=== PATIENT | female | born 1980 | race Caucasian/White ===

== ENCOUNTER → 2017-09-27 13:35 | Outpatient (CLI) | payer SELFPAY ==
[2017-10-05 10:00] LABS: HPV Reflexed? NOT INDICATED
== END ==
PROVIDERS: Visit Provider Obstetrics & Gynecology
DX: Z12.4 Encounter for screening for malignant neoplasm of cervix (principal)
CPT/HCPCS: 88175; G0145

== ENCOUNTER → 2017-10-19 08:04 | Outpatient (CLI) | payer SELFPAY ==
--- NOTE | 2017-10-19 08:12 | BI_ITS ---
MAMMOGRAPHY - BILATERAL SCREENING REASON FOR EXAM: Female, 37 years old. Routine annual screening examination. PERTINENT HISTORY: Mother with breast cancer. TECHNIQUE: Digital bilateral breast cheko (3D mammographic acquisition) in the CC and MLO projections. 2-D mediolateral oblique (MLO) and craniocaudad (CC) views of both breasts were obtained. CAD: Full Field Digital Mammography with Computer Added Detection was performed. COMPARISON: None. Baseline examination. FINDINGS: Breast Composition: The breasts are extremely dense, which lowers the sensitivity of mammography. There are no dominant masses or suspicious calcifications. No other significant abnormalities are identified. BI/SCREENING MAMM (CAD), BILAT IMPRESSION: Negative screening mammogram. Yearly followup mammogram recommended. (A) ASSESSMENT CATEGORY: BIRADS Category 1: Negative. A letter regarding these results will be sent to the patient by the facility within 30 days. Approximately 10% of breast cancers are not detected by mammography. A normal mammogram should not delay biopsy of a clinically suspicious abnormality. [id number] Electronically Signed: Benedict Gallardo MD at 13:49 EDT Tel [phone], Service support ,
== END ==
PROVIDERS: Visit Provider Obstetrics & Gynecology
DX: Z12.31 Encounter for screening mammogram for malignant neoplasm of breast (principal)
CPT/HCPCS: 77063; 77067

== ENCOUNTER 2017-11-10 19:06 | Emergency (ER) | payer OTHER, SELFPAY ==
[2017-11-10 19:06] VITALS: BP 125/74; PULSE 91; RESP 24; TEMP 36.7; O2SAT 100; BMI 23.5
[2017-11-10] MEDS: proCHLORPERazine 10 MG/2 ML Vial IV (19:32)
[2017-11-10] MEDS: DiphenhydrAMINE 50 MG/ML Syringe IV (19:32)
[2017-11-10] MEDS: 0.9% Normal Saline 1,000 ML 999 ML IV (19:32)
[2017-11-10] MEDS: Ketorolac 30 MG/ML Syringe IV (19:32)
--- NOTE | 2017-11-10 19:34 | ED.VISSUMM ---
- ER Visit Summary Date of Service: 11/10/17 Chief Complaint: Headache History of Present Illness: The patient is a 37 F with history of headache presents to the emergency department with increasing symptoms. 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 She follows with Dr. Poon. She states her headache worsened today. She describes nausea and vomiting. She states this is the same headache that she always gets. She tried her [place] at home but was unable to keep it down. She denies any fevers or chills. She denies any vision change. Physical Examination: Well-appearing patient is in no acute distress. Head is normocephalic, atraumatic. Pupils equal round reactive, extraocular muscles intact. There is no temporal artery tenderness. There is no vesicular rash. Neck supple. Kernig's and Brudzinski's are negative. Heart regular rate and rhythm. Lungs clear, chest nontender. Abdomen soft, nontender, nondistended. Neuro exam displays no focal or lateralizing deficit. 2+ symmetric lower extremity reflexes. No clonus. No ataxia or gait abnormality. Test Results: [] Emergency Department Course and Treatment: The patient presents with her normal headache. She is not encephalopathic. She is not meningitic. She has a benign neurologic examination. IV was established. She was treated with migraine abortive medications. On reevaluation, her headache is totally resolved. At this time, I do feel that she is safe for outpatient therapy. I will prescribe her dissolvable Zofran she states that that was the worst symptom was her nausea. She is comfortable with this plan of care. Treatment Plan: [] Disposition: Discharge Impression: 1. Migraine headache This note was generated with [employer] dictation software. It may contain incorrect words, spelling, and punctuation that were not noted in review of the chart prior to signing ED Disposition - Plan for ED Patient: Chief Complaint: Headache Instructions: ED Headache Migraine Prescriptions: Ondansetron [Zofran Odt] 4 mg PO Q8H PRN PRN #10 tab PRN Reason: Nausea Referrals: Care Physician,No Primary [Primary Care Provider] -
[2017-11-10 20:26] VITALS: BP 120/60; PULSE 87; RESP 18; O2SAT 97
== END 2017-11-10 20:28 | disposition home or self-care (01) ==
LOC: ED 19:27
PROVIDERS: Emergency Provider Emergency Medicine
DX: G43.909 Migraine, unspecified, not intractable, without status migrainosus (principal)
CPT/HCPCS: 96361; 96374; 96375; 99283; J7030

== ENCOUNTER 2018-01-10 14:19 | Emergency (ER) | payer OTHER, SELFPAY ==
[2018-01-10 14:20] VITALS: BP 131/81; PULSE 94; RESP 18; TEMP 36.9; O2SAT 99; BMI 25.0
[2018-01-10 14:58] VITALS: BP 107/70; PULSE 87; RESP 14; O2SAT 99
--- NOTE | 2018-01-10 15:24 | ED.DCSUM_ITS ---
- ER Visit Summary Date of Service: 01/10/18 Chief Complaint: Headache History of Present Illness: The patient is a 37 F presenting with headache. She states this started this morning. Headache was gradual in onset and worsened throughout the day. She has nausea with no vomiting. She denies fever. She has a history of recurrent neuropathic headaches and is in pain management per Dr. Poon for the past 6 years. This is similar to previous headaches. She takes hydrocodone at home. Denies trauma. Denies new complaints. Physical Examination: Vitals are stable. Patient is afebrile. Alert no acute distress. HEENT exam is unremarkable. Neck is supple. No meningismus Lungs are clear and equal bilaterally. Heart is regular rate and rhythm. Abdomen is soft nontender nondistended. Extremities are unremarkable. Skin is warm and dry. No focal neurologic deficit. Remainder of exam is unremarkable. Emergency Department Course and Treatment: Patient given IV fluids, Compazine, Benadryl IV. She feels improved but continues to have some pain. She was given Toradol IV. On re-evaluation she is much improved. She is comfortable with discharge. She will follow-up with her pain management physician. She is advised return to ED if worsening complaints. Disposition: Discharge home Impression: Headache This note was generated with [employer] dictation software. It may contain incorrect words, spelling, and punctuation that were not noted in review of the chart prior to signing ED Disposition - Plan for ED Patient: Chief Complaint: Headache Instructions: ED Headache Migraine Referrals: Sunday Poon MD [STAFF PHYSICIAN] - Care Physician,No Primary [Primary Care Provider] -
[2018-01-10] MEDS: 0.9% Normal Saline 1,000 ML 999 ML IV (15:42)
[2018-01-10] MEDS: DiphenhydrAMINE 50 MG/ML Syringe 25 MG IV (15:42)
[2018-01-10] MEDS: proCHLORPERazine 10 MG/2 ML Vial IV (15:42)
[2018-01-10] MEDS: Ketorolac 30 MG/ML Syringe IV (17:33)
--- NOTE | 2018-01-10 18:10 | ED.DEP ---
ED Disposition - Plan for ED Patient: Chief Complaint: Headache Instructions: ED Headache Migraine Referrals: Care Physician,No Primary [Primary Care Provider] - Sunday Poon MD [STAFF PHYSICIAN] -
[2018-01-10 18:31] VITALS: PULSE 95; RESP 14; O2SAT 100
== END 2018-01-10 18:32 | disposition home or self-care (01) ==
PROVIDERS: Emergency Provider Emergency Medicine
DX: R51 Headache (principal); R11.0 Nausea; M54.2 Cervicalgia; G43.909 Migraine, unspecified, not intractable, without status migrainosus
CPT/HCPCS: 96361; 96374; 96375; 99283; J7030; A4216

== ENCOUNTER → 2018-11-12 | Outpatient (CLI) | payer SELFPAY, OTHER ==
--- NOTE | 2018-11-12 14:48 | BI_ITS ---
MAMMOGRAPHY - BILATERAL SCREENING REASON FOR EXAM: Female, 38 years old. Routine annual screening examination. PERTINENT HISTORY: Mother with breast cancer. TECHNIQUE: Digital bilateral breast linda (3D mammographic acquisition) in the CC and MLO projections. 2-D mediolateral oblique (MLO) and craniocaudad (CC) views of both breasts were obtained. CAD: Full Field Digital Mammography with Computer Added Detection was performed. COMPARISON: Comparison is made with prior study dated October 19, 2017. FINDINGS: Breast Composition: The breasts are extremely dense, which lowers the sensitivity of mammography. There are no dominant masses or suspicious calcifications. No other significant abnormalities are identified. There has been no significant change since the prior study. BI/SCREEN MAMM (CAD) W/LINDA BILAT IMPRESSION: Stable bilateral screening mammogram. Yearly follow-up mammogram recommended. (A) ASSESSMENT CATEGORY: BIRADS Category 1: Negative. A letter regarding these results will be sent to the patient by the facility within 30 days. Approximately 10% of breast cancers are not detected by mammography. A normal mammogram should not delay biopsy of a clinically suspicious abnormality. [id number] Electronically Signed: Benedict Gallardo, at 8:29 EDT , Service support ,
== END | disposition home or self-care (01) ==
PROVIDERS: Referring Provider Obstetrics & Gynecology; Visit Provider Obstetrics & Gynecology
DX: Z12.31 Encounter for screening mammogram for malignant neoplasm of breast (principal)
CPT/HCPCS: 77063; 77067

== ENCOUNTER 2019-12-19 10:54 | Emergency (ER) | payer OTHER, SELFPAY ==
[2019-12-19 10:56] VITALS: BP 133/81; PULSE 92; RESP 17; TEMP 36.2; O2SAT 100; BMI 25.7
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
[2019-12-19] MEDS: HYDROcodone Bitartrate/Apap 5/325 Tablet PO (11:23)
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
--- NOTE | 2019-12-19 12:35 | CT_ITS ---
STUDY: CT RIGHT KNEE WITHOUT CONTRAST REASON FOR EXAM: Female, 39 years old. RT KNEE FX RADIATION DOSAGE (If Supplied By Facility): CTDIvol = ( 15.35 ) mGy, DLP = ( 568.68 ) mGycm TECHNIQUE: Transaxial CT imaging of the knee was performed. Coronal and sagittal images were reformatted. Individualized dose optimization techniques were used for this CT. COMPARISON: Comparison is made with prior radiograph done earlier in the day. FINDINGS: Normal medial femoral condyle and medial tibial plateau. There is preservation of the articular joint space of the medial knee compartment. There is evidence of a depressed fracture involving the lateral tibial plateau anteriorly and in the midportion. The depression measures 6.6 mm. The fracture extends into the posterior aspect of the proximal tibial metaphysis. There is preservation of the articular joint space of the lateral knee compartment. Normal proximal tibiofibular articulation. Moderate size joint effusion. The quadriceps tendon is grossly normal. The patellar tendon is grossly normal. Normal Hoffa''s fat pad. Soft tissue swelling. CT/Extremity Lower without Contra IMPRESSION: Depressed fracture of the lateral tibial plateau with extension of the fracture line into the lateral aspect of the proximal tibial metaphysis. The depression measures 6.6 mm. Moderate-sized joint effusion. Electronically Signed: Benedict Gallardo, at 13:58 EDT , Service support ,
[2019-12-19] MEDS: Morphine 4 MG/ML Syringe IV (13:23)
--- NOTE | 2019-12-19 14:05 | NURSING ---
CALLED [facility], ETA IS 90 MIN TO 2 HRS
[2019-12-19] MEDS: fentaNYL 100 MCG/2 ML Ampul 50 MCG IV (16:19)
[2019-12-19 16:56] VITALS: BP 109/63; PULSE 75; RESP 16; TEMP 36.6; O2SAT 99
== END 2019-12-19 16:58 | disposition short-term general hospital (02) ==
PROVIDERS: Emergency Provider Emergency Medicine
DX: S82.141A Displaced bicondylar fracture of right tibia, initial encounter for closed fracture (principal); M54.2 Cervicalgia; G89.29 Other chronic pain; M25.551 Pain in right hip; V86.79XA Person on outside of other special all-terrain or other off-road motor vehicles injured in nontraffic accident, initial encounter; Y93.9 Activity, unspecified; Y92.9 Unspecified place or not applicable
CPT/HCPCS: 29505; 73502; 73564; 73700; 96374; 96375; 99284; A4216

== ENCOUNTER 2020-03-11 13:00 | Outpatient (RCR) | payer SELFPAY, OTHER ==
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
--- NOTE | 2020-04-22 08:59 | HP.PT.NRP ---
MIGUEL ÁNGEL HEATH was seen in my office for initial evaluation on 01/29/20. The following Plan of Care was established for this patient: Initial Frequency: 2x /Week Initial Duration: 4-6 Weeks Patient/Client Instruction: Educate patient on: Condition, Plan of Care For the Purpose of:: To decrease pain, To improve muscle performance and motor function, To increase tolerance to activity/condition/position, To improve ability of physical actions for home/community/work/leisure, To improve gait and locomotor functions Therapeutic Exercise to Include: Strength training, Postural training, Flexibilty training, Gait and locomotor training, Passive ROM, Active ROM For the Purpose of:: To decrease pain, To increase ROM, To improve muscle performance and motor function, To increase tolerance to activity/condition/position, To improve ability of physical actions for home/community/work/leisure, To improve gait and locomotor functions Manual Therapy Techniques to Include: Petrissage, Soft tissue mobilization For the Purpose of:: To decrease pain, To increase ROM, To improve muscle performance and motor function This patient was last seen in our office 03/11/20. Pertinent comments regarding their Physical therapy will appear below: Pt seen 11 visits of POC and was 60% better overall. She was to f/u with doctor after last session and call if she needed to return. at this point, it has been over 4 weeks adn I will disocntinue due to nonattendance. At this point I will be discontinuing this patient from physical therapy. I would be happy to see this patient again in the future if found appropriate by the physician. Thank you! David Amos, DPT, OCS, CSCS
== END 2020-03-11 19:00 | disposition home or self-care (01) ==
LOC: PT 13:00
DX: S82.141D Displaced bicondylar fracture of right tibia, subsequent encounter for closed fracture with routine healing (principal)
CPT/HCPCS: 97110; 97140; 97162; 97530

== ENCOUNTER → 2020-03-17 | Outpatient (CLI) | payer SELFPAY ==
[2020-03-22 03:06] LABS: Chlamydia By Nucleic Acid AMP Negative (Negative)
[2020-03-22 14:46] LABS: Gonococcus By Nucleic Acid AMP Negative (Negative)
[2020-03-24 13:30] LABS: HPV Reflexed? NOT INDICATED
== END | disposition home or self-care (01) ==
LOC: LABSPEC 03-19 08:51
PROVIDERS: Visit Provider Obstetrics & Gynecology
DX: Z11.3 Encounter for screening for infections with a predominantly sexual mode of transmission (principal); Z12.4 Encounter for screening for malignant neoplasm of cervix
CPT/HCPCS: 87491; 87591; 88175; G0145

== ENCOUNTER → 2020-04-08 09:35 | Outpatient (CLI) | payer OTHER, SELFPAY ==
[2020-04-08 09:59] LABS: Absolute Lymphocyte Count 1.58 X10^3/uL (0.83-4.51); Basophil# 0.05 X10^3/uL; Basophil% 0.5 % (0-1); Eosinophil# 0.03 X10^3/uL; Eosinophils% 0.3 % (0-5); Hematocrit 37.7 % (37-47); Hemoglobin 13.2 g/dL (12.0-15.0); Lymphocyte # 1.58 X10^3/ul (4.0); Lymphocyte % 17.2 % (19-41); Mean Corpuscular Hgb 31.8 pg (27.0-32.0); Mean Corpuscular Volume 90.8 fL (81-99); Mean Platelet Vol. 9.8 fl (6.2-12.0); Monocyte% 5.5 % (0-10); NRBC Flagged by Analyzer 0 % (0-5); Neutrophil # 6.96 X10^3/uL (2.7-7.7); Neutrophil % 76.1 % (47-70); Platelet Count 265 K/mm3 (150-450); RBC Distribution Width CV 12.5 % (11.6-14.6); Red Blood Count 4.15 M/mm3 (4.2-5.4); White Blood Count 9.2 K/mm3 (4.4-11.0)
[2020-04-08 10:09] LABS: Color, Urine Yellow (Yellow); Glucose, Dipstick Normal (Normal); Ketone-Dipstick Negative (Negative); Leukocyte Esterase-Dipstick Negative /ul (Negative); Nitrite-Dipstick Negative (Negative); Occult Blood-Urine Negative /ul (Negative); Protein-Dipstick Negative (Negative); Urine Bilirubin Dipstick Negative (Negative); Urine Clarity Clear (Clear); Urine Urobilinogen Normal (Normal)
[2020-04-08 14:14] LABS: HIV - WCH Non-Reactive (Nonreactive); Hepatitis B Surface Antigen Non-Reactive (Nonreactive); Hepatitis C Antibody Non-Reactive (Nonreactive); Rubella IgG Reactive (Nonreactive)
[2020-04-09 03:03] LABS: Prenatal RPR NONREACTIVE (NONREACTIVE)
== END ==
PROVIDERS: Visit Provider Obstetrics & Gynecology
DX: Z34.81 Encounter for supervision of other normal pregnancy, first trimester (principal)
CPT/HCPCS: 36415; 81002; 84443; 85025; 86703; 86762; 86803; 87340

== ENCOUNTER → 2020-05-04 | Outpatient (CLI) | payer OTHER, SELFPAY | END | disposition home or self-care (01) | LOC: LABSPEC 16:13 | PROVIDERS: Visit Provider Student in an Organized Health Care Education/Training Program | DX: Z34.81 Encounter for supervision of other normal pregnancy, first trimester (principal); R30.0 Dysuria | CPT/HCPCS: 87086 ==

== ENCOUNTER → 2020-08-12 10:20 | Outpatient (CLI) | payer OTHER, SELFPAY ==
[2020-08-12 11:52] LABS: Hematocrit 32.4 % (37-47); Hemoglobin 10.8 g/dL (12.0-15.0); Mean Corp Hgb Conc 33.3 g/dL (32-36); Mean Corpuscular Hgb 31.7 pg (27.0-32.0); Platelet Count 237 K/mm3 (150-450); RBC Distribution Width CV 12.4 % (11.6-14.6); RBC Distribution Width SD 43.3 fl (35.1-43.9); Red Blood Count 3.41 M/mm3 (4.2-5.4); White Blood Count 10.6 K/mm3 (4.4-11.0)
[2020-08-12 11:53] LABS: Glucose Challenge Gest 1H 50g 121 mg/dL (70-140)
== END ==
PROVIDERS: Visit Provider Obstetrics & Gynecology
DX: Z34.83 Encounter for supervision of other normal pregnancy, third trimester (principal)
CPT/HCPCS: 36415; 82950; 85027

== ENCOUNTER → 2020-10-14 | Outpatient (CLI) | payer OTHER, SELFPAY | END | disposition home or self-care (01) | LOC: LABSPEC 12:11 | PROVIDERS: Visit Provider Obstetrics & Gynecology | DX: Z36.85 Encounter for antenatal screening for Streptococcus B (principal) | CPT/HCPCS: 87081 ==

== ENCOUNTER 2020-11-03 04:55 | Inpatient (IN) | payer SELFPAY, OTHER ==
[2020-11-03] VITALS (46 sets, daily range): BP systolic 99–140; BP diastolic 55–79; PULSE 68–134; TEMP 36.3–37.1; O2SAT 97–100; BMI 28.0
[2020-11-03 05:06] LABS: ROM Internal Control Test YES-OK TO RESULT pt. (Internal QC)
[2020-11-03 05:08] LABS: ROM Patient Test POSITIVE (Negative)
[2020-11-03] MEDS: Lactated Ringers 1,000 ML 50 ML IV ×2 (05:10→10:27)
[2020-11-03 05:27] LABS: Absolute Neutrophil Count 8.7 X10^3/uL (2.0-7.7); Basophil# 0.07 X10^3/uL; Basophil% 0.6 % (0-1); Eosinophil# 0.07 X10^3/uL; Eosinophils% 0.6 % (0-5); Hematocrit 32.9 % (37-47); Hemoglobin 10.6 g/dL (12.0-15.0); Lymphocyte % 13.5 % (19-41); Mean Corp Hgb Conc 32.2 g/dL (32-36); Mean Corpuscular Hgb 29.4 pg (27.0-32.0); Mean Corpuscular Volume 91.1 fL (81-99); Monocyte# 0.68 X10^3/uL; Monocyte% 6.1 % (0-10); NRBC Flagged by Analyzer 0 % (0-5); Neutrophil # 8.65 X10^3/uL (2.7-7.7); Neutrophil % 78.2 % (47-70); Platelet Count 230 K/mm3 (150-450); RBC Distribution Width CV 13.2 % (11.6-14.6); RBC Distribution Width SD 43.6 fl (35.1-43.9); Red Blood Count 3.61 M/mm3 (4.2-5.4); White Blood Count 11.1 K/mm3 (4.4-11.0)
--- NOTE | 2020-11-03 07:47 | PCM.HP.BLA ---
History and Physical Date of Admission: 11/03/20 Chief complaint: Leakage of fluid History present illness: 40-year-old G1, P0 at 39 weeks and 3 days with GONZALEZ: 11/07/2020 by 9wk ultrasound arrives with leakage of clear fluid at 03 100. Denies headache, chest pain, shortness of breath, nausea vomiting, right upper quadrant pain. Patient states good movement. Obstetrical history: G1: Current Past medical history: Migraines, trigeminal neuralgia Medications: vitamin Past surgical history: Right knee, right shoulder Allergies Percocet Family history: Denies history of DVT or PE Social history: Denies smoking, alcohol use, drug use Review of systems: Besides above pertinent positives a full review of systems was performed and found to be negative Physical exam: Vital signs: Blood pressure 124/72 pulse 85 SPO2 100% on room air General: Normal-appearing no acute distress HEENT: Normocephalic atraumatic Cardiac/respiratory: No use of accessory muscles, nonlabored breathing Abdomen: Soft, nontender, gravid Extremities: No peripheral edema normal peripheral pulses Psych: Normal affect normal demeanor nonpressured speech Labs: White blood cell count 11.1 hemoglobin 10.6 hematocrit 32.9% platelets 230. ROM positive. Blood type O+ antibody negative Assessment plan: 40-year-old G1, P0 at 39 weeks and 3 days with SROM Admit to labor and delivery CEFM GBS negative Will augment with Pitocin if no cervical change Routine orders Anesthesia see
[2020-11-03] MEDS: 0.9% Saline Lock 10 ML Syringe IV (10:26)
[2020-11-03] MEDS: Oxytocin 30 units/NS 500 ml 30 UNITS/500 ML IV.SOLN IV (12:39)
[2020-11-03] MEDS: Ondansetron 4 MG/2 ML Vial IV (13:50)
[2020-11-03] MEDS: Lactated Ringers 500 ML 999 ML IV ×2 (16:17→21:41)
[2020-11-03] MEDS: fentaNYL-bupivacaine (epidural) 100 ML BAG EPIDURAL ×2 (17:00→21:10)
[2020-11-03] MEDS: Mag Hydrox/Al Hydrox/Simeth 30 ML UDC PO (17:10)
--- NOTE | 2020-11-03 17:41 | PCM.PN.OB ---
Subjective Subjective Patient uncomfortable with contractions but improved comfort after epidural recently placed Objective Data Objective Data Vital Signs: Vital Signs Temp Pulse BP Pulse Ox 97.3 F L 106 H 99/66 98 11/03/20 17:19 11/03/20 17:31 11/03/20 17:31 11/03/20 17:28 Weight: 168 lb 3.403 oz Body Mass Index (BMI) 28.0 Intake & Output: Intake and Output for Last 24 Hours 11/01/20 11/02/20 11/03/20 23:59 23:59 23:59 Intake Total 1371.61 / 1371.61 Output Total 950 / 950 Balance 421.61 / 421.61 Lab / Micro Data Result Diagrams: 11/03/20 05:10 Labs: Laboratory Results - last 24 hr 11/03/20 04:51: Vag Amniotic Fld Detect POSITIVE H 11/03/20 05:10: WBC 11.1 H, RBC 3.61 L, Hgb 10.6 L, Hct 32.9 L, MCV 91.1, MCH 29.4, MCHC 32.2, RDW Std Deviation 43.6, RDW Coeff of Denis 13.2, Plt Count 230, MPV 10.0, Immature Gran % (Auto) 1.000 H, Neut % (Auto) 78.2 H, Lymph % (Auto) 13.5 L, [place] % (Auto) 6.1, Eos % (Auto) 0.6, Baso % (Auto) 0.6, Absolute Neuts (auto) 8.7 H, Absolute Lymphs (auto) 1.50, Nucleated RBC % 0 11/03/20 05:10: Blood Type O POSITIVE, Antibody Screen NEGATIVE Micro: Microbiology 11/03/20 05:10 Mucosa - Nasopharyngeal SARS-CoV-2 Antigen (Rapid) - Final Physical Exam Const alert, oriented x3, no apparent distress, average body habitus, healthy appearing and well nourished HEENT normocephalic and moist oral mucous membranes Head and Scalp: atraumatic Neck full ROM Resp normal respiratory effort, no retractions and no use of accessory muscles GI normal to inspection, nondistended, normoactive bowel sounds Narrative: Cervical exam: /-1. Bedside ultrasound cephalic Extremity normal to inspection, full ROM and no clubbing, cyanosis or edema Psych mental status grossly normal, affect normal, speech normal and activity/motor behavior normal Assessment & Plan (1) : PLAN: Patient seen and examined. Cervix . Augmenting with Pitocin. Patient just got epidural, comfort improving. Continue current management
[2020-11-03] MEDS: Lactated Ringers 1,000 ML 200 ML IV (19:03)
[2020-11-03] MEDS: Acetaminophen 500 MG Tablet PO (23:12)
[2020-11-04] VITALS (30 sets, daily range): BP systolic 88–154; BP diastolic 52–77; PULSE 75–130; RESP 16–18; TEMP 36.1–37.1; O2SAT 89–100
[2020-11-04] MEDS: Lactated Ringers 1,000 ML 200 ML IV (00:09)
[2020-11-04] MEDS: fentaNYL-bupivacaine (epidural) 100 ML BAG EPIDURAL (01:34)
[2020-11-04] MEDS: Mag Hydrox/Al Hydrox/Simeth 30 ML UDC PO (01:49)
[2020-11-04] MEDS: 0.9% Saline Lock 10 ML Syringe IV ×2 (02:57→08:24)
[2020-11-04] MEDS: Ondansetron 4 MG/2 ML Vial IV (02:57)
[2020-11-04] MEDS: Oxytocin 30 units/NS 500 ml 30 UNITS/500 ML IV.SOLN 334 UNITS IV (05:44)
--- NOTE | 2020-11-04 06:16 | EX.PCM.OBRPT ---
Vaginal Delivery Findings Description of Procedure: Normal spontaneous vaginal delivery of a viable male , vertex SIN. Head and shoulders delivered with ease. Cord cut and clamped. Baby handed off to patient. Placenta with cord avulsion delivered via manual extraction. IV oxytocin was initiated to facilitate uterine contractions. First-degree midline perineal laceration noted and repaired in typical fashion. EBL 350 cc Apgars 9/9
[2020-11-04] MEDS: Acetaminophen/Butalbital/Caffe 1 Tablet PO (07:04)
[2020-11-04] MEDS: Acetaminophen 500 MG Tablet 1000 MG PO (20:57)
[2020-11-05] MEDS: Ibuprofen 600 MG Tablet PO (00:19)
[2020-11-05 00:20] VITALS: BP 106/53; PULSE 87; RESP 18
[2020-11-05 04:32] VITALS: BP 101/37; PULSE 76; RESP 18
--- NOTE | 2020-11-05 06:48 | PCM.PN.OB ---
Subjective Subjective No issues overnight. Reports intermittent cramp like lower abdominal pain. Denies heavy lochia. She is and infant feeding well. Objective Data Objective Data Vital Signs: Vital Signs Temp Pulse Resp BP Pulse Ox 97.9 F 76 18 101/37 L 99 11/04/20 20:50 11/05/20 04:32 11/05/20 04:32 11/05/20 04:32 11/04/20 12:03 Oxygen Delivery Method Room Air Weight: 76.3 kg Body Mass Index (BMI) 28.0 Intake & Output: Intake and Output for Last 24 Hours 11/03/20 11/04/20 11/05/20 23:59 23:59 23:59 Intake Total 3940.92 / 3940.92 2780.44 / 2780.44 Output Total 950 / 950 2950 / 2950 Balance 2990.92 / 2990.92 -169.56 / -169.56 Lab / Micro Data Result Diagrams: 11/03/20 05:10 Micro: Microbiology 11/03/20 05:10 Mucosa - Nasopharyngeal SARS-CoV-2 Antigen (Rapid) - Final Physical Exam Const alert, oriented x3 and no apparent distress Resp normal respiratory effort and normal air movement Cardio regular rate, regular rhythm, S1 normal heart sound and S2 normal heart sound Cardio Narrative: holosytolic murmur at LUSB appreciated Uterus Palpation: uterus fundus firm and other OB fundus nontender Extremity no calf tenderness Neuro oriented x3 Assessment & Plan (1) (spontaneous vaginal delivery): COMMENT: PPD#1 s/p PLAN: Doing well O pos, Rubella immune Will d/c home later today if patient desires
--- NOTE | 2020-11-05 07:03 | PCM.DC ---
Discharge Instructions Diet Discharge Diet: No restrictions Activity Discharge Activity: Return to Normal Activity May resume sexual activity in: 6 weeks Lifting Restrictions: 20lb Dressing / Incision Call your doctor if you observe: Fever of 101 or Higher, Using more than 1 pad per hour, Shortness of breath, Chest pain, Calf discomfort, Uncontrolled pain and - (Persistent or severe headache) Follow Up Care Please Follow Up With: Evangelista Lino MD When: 3 weeks for telehealth follow up 6 weeks for visit Test Results: Test results from this visit will be discussed in further detail at your follow-up appointment, if applicable. Discharge Plan Admission Admit Date/Time: 11/03/20 04:55 Primary Reason for Your Visit: Vaginal delivery Attending Provider: Ranjeet Kelly Patient Instructions: After a Vaginal , Understanding Depression Discharge Orders/Prescriptions Prescriptions: New ibuprofen 600 mg Tablet 600 mg PO Q8H PRN PRN (Reason: Pain Score 1-3) Qty: 30 RF: 0 Continued uvngdmiyoh-qadnfwcyzrofw-qmxr [Fioricet] 50-300-40 mg Capsule 1 cap PO PRN PRN (Reason: RANKIN) RF: 0 Discontinued ondansetron 4 MG tablet 4 mg PO Q8H PRN PRN (Reason: Nausea) Qty: 10 RF: 0 Disposition Disposition (needs filled in before D/C Order can be placed): Home, Self Care
[2020-11-05 09:30] VITALS: BP 119/47; PULSE 60; RESP 14; TEMP 36.6
[2020-11-05] MEDS: Acetaminophen/Butalbital/Caffe 1 Tablet PO (09:55)
--- NOTE | 2020-11-05 14:55 | NURSING ---
Report given to Hanna Hatch RN. She will assume care of patient at this time.
[2020-11-05 15:20] VITALS: BP 127/47; PULSE 100; RESP 18; TEMP 36.7
== END 2020-11-05 17:55 | disposition home or self-care (01) | DRG 807 ==
LOC: WPOUT 04:57 → WP 04:57
PROVIDERS: Admitting Provider Obstetrics & Gynecology; Visit Provider Obstetrics & Gynecology
DX: O70.0 First degree perineal laceration during delivery (principal); Z37.0 Single live birth; Z3A.39 39 weeks gestation of pregnancy
CPT/HCPCS: 59025; 59050; 84112; 85025; 86850; 86900; 86901; 87426; 99218; J7120; A4216; G0378; J2405

== ENCOUNTER 2021-04-02 12:16 | Outpatient (CLI) | payer SELFPAY, OTHER ==
--- NOTE | 2021-04-02 12:31 | BI_ITS ---
MAMMOGRAPHY - BILATERAL SCREENING REASON FOR EXAM: Female, 41 years old. Routine annual screening examination. PERTINENT HISTORY: Mother with breast cancer. Occasional left breast pain in the upper outer quadrant. TECHNIQUE: Digital bilateral breast linda (3D mammographic acquisition) in the CC and MLO projections. 2-D mediolateral oblique (MLO) and craniocaudad (CC) views of both breasts were obtained. CAD: Full Field Digital Mammography with Computer Added Detection was performed. COMPARISON: Comparison is made with prior study dated 11/12/2018 and 10/19/2017. FINDINGS: Breast Composition: The breasts are extremely dense, which lowers the sensitivity of mammography. There are no dominant masses or suspicious calcifications. No other significant abnormalities are identified. There has been no significant change since the prior study. BI/SCRN MAMM (CAD)W/LINDA BILAT IMPRESSION: Stable bilateral screening mammogram. Yearly follow-up mammogram recommended. (A) ASSESSMENT CATEGORY: BIRADS Category 1: Negative. A letter regarding these results will be sent to the patient by the facility within 30 days. Approximately 10% of breast cancers are not detected by mammography. A normal mammogram should not delay biopsy of a clinically suspicious abnormality. [id number] Electronically Signed: Benedict Gallardo MD at 14:11 EST , Service support ,
== END 2021-04-02 23:59 | disposition short-term general hospital (02) ==
PROVIDERS: Referring Provider Obstetrics & Gynecology; Visit Provider Obstetrics & Gynecology
DX: Z12.31 Encounter for screening mammogram for malignant neoplasm of breast (principal)
CPT/HCPCS: 77063; 77067

== ENCOUNTER → 2021-11-15 | Outpatient (CLI) | payer SELFPAY, OTHER ==
--- NOTE | 2021-11-15 15:52 | MRI_ITS ---
STUDY: MRI CERVICAL SPINE WITHOUT CONTRAST REASON FOR EXAM: Female, 41 years old. Cervicalgia. severe pain , throbbing neck into shoulder TECHNIQUE: Standardized fat and water weighted pulse sequences were obtained in the sagittal and axial planes. COMPARISON: MRI of the cervical spine dated September 28, 2016 FINDINGS: Normal foramen magnum and brainstem-cervical cord junction. Normal craniovertebral junction. Normal anterior atlantoaxial articulation. Normal odontoid process. There is straightening of the normal cervical lordosis. Normal vertebral bodies and posterior osseous elements. C2-3: Normal endplates. Diffuse disc desiccation. Normal disc height and morphology. Normal central canal and intervertebral neural foramina. C3-4: Normal endplates. Diffuse disc desiccation and mild posterior disc space narrowing with minimal left paracentral annular bulging. Normal central canal and right neural foramen. Mild left foraminal stenosis secondary to facet joint and uncovertebral hypertrophy. C4-5: Normal endplates. Diffuse disc desiccation and mild asymmetric disc space narrowing. No significant disc herniation or bulging. Normal central canal. Mild bilateral foraminal stenosis secondary to uncovertebral and facet joint hypertrophy. C5-6: Normal endplates. Anterolisthesis of C5 on C6 of no more than 2 mm. Diffuse disc desiccation mild disc space narrowing with minimal annular bulging. Normal central canal and intervertebral neural foramina. C6-7: Normal endplates. Mild disc desiccation and posterior disc space narrowing with an associated midline and left paracentral disc protrusion causing mass effect on the cord and mild focal central canal stenosis. Normal intervertebral neural foramina. C7-T1: Stable bilateral perineural cysts. Moderate proximal right foraminal stenosis with nerve root impingement secondary to facet joint hypertrophy. Normal left neural foramen. Normal endplates. Normal disc height, signal and morphology. Normal central canal. Normal cervical cord. There is no demonstrated cervical cord syrinx cavity. Normal visualized soft tissue structures. MRI/Spine Cervical (Routine) IMPRESSION: 1. Multilevel degenerative changes, as described above. 2. Left paracentral disc protrusion resulting in mass effect on the left anterior aspect of the cord and mild central canal stenosis at C6-C7 3. Multilevel foraminal stenosis 4. Moderate proximal right foraminal stenosis with nerve root compression at C7-T1 Electronically Signed: Jose Suggs MD at 10:20 EDT ,
--- NOTE | 2021-11-15 16:30 | MRI_ITS ---
STUDY: MRI LUMBAR SPINE WITHOUT CONTRAST REASON FOR EXAM: Female, 41 years old. LOW BACK PAIN TECHNIQUE: Standardized fat and water weighted pulse sequences were obtained in the sagittal and axial planes. COMPARISON: None FINDINGS: Normal lumbar lordosis. There is no substantial scoliosis. Normal conus medullaris that terminates at the T12-L1 level. No marrow edema or fracture or compression deformity is present. L1-2: Normal endplates. Normal disc height, hydration and morphology. Normal bilateral facet joints. Normal central canal and bilateral lateral recesses. Normal bilateral intervertebral neural foramina. L2-3: Normal endplates. Normal disc height, hydration and morphology. Normal bilateral facet joints. Normal central canal and bilateral lateral recesses. Normal bilateral intervertebral neural foramina. L3-4: Normal endplates. Minor disc desiccation and mild posterior asymmetric disc space narrowing and annular bulging. Retrolisthesis of L3 on L4 of 2 to 3 mm. Normal bilateral facet joints. Normal central canal and bilateral lateral recesses. Normal bilateral intervertebral neural foramina. L4-5: Normal endplates. Diffuse disc desiccation with mild posterior disc space narrowing as well as a left paracentral and foraminal/far lateral annular tear in the disc resulting in a shallow disc protrusion. Left lateral recess stenosis with nerve root compression is also present. Normal central canal and right lateral recess. Mild facet joint hypertrophy. Normal bilateral intervertebral neural foramina. Retrolisthesis of L4 and L5 of no more than 2 mm. L5-S1: Normal endplates. Normal disc height, hydration and morphology. Normal bilateral facet joints. Normal central canal and bilateral lateral recesses. Normal bilateral intervertebral neural foramina. Normal visualized sacral ala. Normal visualized paraspinous soft tissue structures. MRI/Spine Lumbar (Routine) IMPRESSION: 1. Multilevel degenerative changes, as described above. 2. Left lateral recess stenosis with nerve root compression at L4-L5 secondary to a left paracentral/foraminal disc protrusion and annular tear Electronically Signed: Jose Suggs MD at 10:12 EDT ,
== END | disposition home or self-care (01) ==
DX: M54.50 Low back pain, unspecified (principal); M54.2 Cervicalgia
CPT/HCPCS: 72141; 72148

== ENCOUNTER → 2022-06-02 | Outpatient (CLI) | payer OTHER, SELFPAY | END | disposition home or self-care (01) | LOC: LAB 14:35 | DX: T78.40XA Allergy, unspecified, initial encounter (principal); R19.8 Other specified symptoms and signs involving the digestive system and abdomen ==

== ENCOUNTER → 2022-10-06 | Outpatient (CLI) | payer SELFPAY, OTHER ==
--- NOTE | 2022-10-06 15:33 | MRI_ITS ---
STUDY: MRI CERVICAL SPINE WITHOUT CONTRAST REASON FOR EXAM: Female, 42 years old. pain, radiculopathy lt sided worse TECHNIQUE: Standardized fat and water weighted pulse sequences were obtained in the sagittal and axial planes. COMPARISON: November 15, 2021 FINDINGS: Normal foramen magnum and brainstem-cervical cord junction. Normal craniovertebral junction. Normal anterior atlantoaxial articulation. Normal odontoid process. Normal cervical lordosis. Normal vertebral bodies and posterior osseous elements. C2-3: Normal endplates. Normal disc height, signal and morphology. Normal central canal and intervertebral neural foramina. C3-4: Normal endplates. Normal disc height, signal and morphology. Normal central canal. Mild left neural foraminal stenosis secondary to facet joint and uncovertebral hypertrophy. C4-5: Normal endplates. Normal disc height, signal and morphology. Normal central canal and intervertebral neural foramina. C5-6: Grade 1 spondylolisthesis Normal endplates. Normal disc height, signal and tiny central disc/osteophyte protrusion. Normal central canal and intervertebral neural foramina. C6-7: Normal endplates. Normal disc height, signal and tiny central/left paracentral disc protrusion. Mildly narrowed central canal with minor impingement upon the cord. Normal intervertebral neural foramina. C7-T1: Normal endplates. Normal disc height, signal and morphology. Normal central canal and intervertebral neural foramina. Normal cervical cord. Normal visualized soft tissue structures. No significant change since prior study MRI/Spine Cervical (Routine) IMPRESSION: No evidence for acute fracture or other significant bony pathology.. Mild left neural foraminal stenosis at C3-4 secondary to bony hypertrophy Tiny central disc protrusion at C5-6 without spinal stenosis Tiny central/left paracentral disc protrusion at C6-7 mildly narrowing the spinal canal impinging upon the cord Electronically Signed: Johnathon Arellano MD at 22:03 EDT ,
== END | disposition home or self-care (01) ==
PROVIDERS: PCP Family Medicine; Referring Provider Orthopaedic Surgery; Visit Provider Orthopaedic Surgery
DX: M50.223 Other cervical disc displacement at C6-C7 level (principal)
CPT/HCPCS: 72141

== ENCOUNTER 2022-12-06 05:33 | Inpatient (IN) | payer SELFPAY, OTHER ==
--- NOTE | 2022-11-25 09:26 | EKG12_ITS ---
Test Reason : PREOP Blood Pressure : / mmHG Vent. Rate : 068 BPM Atrial Rate : 068 BPM P-R Int : 100 ms QRS Dur : 074 ms QT Int : 392 ms P-R-T Axes : 058 074 064 degrees QTc Int : 416 ms Sinus rhythm with short ID Otherwise normal ECG Confirmed by SAM SMILEY, DEBI ([id number]), brands editor BRENNAN RIOS ([id number]) on 12/05/2022 7:38:25 AM Referred By: Aung Bear Confirmed By:DEBI VARGAS MD
[2022-11-25 09:35] LABS: Absolute Neutrophil Count 3.9 X10^3/uL (2.0-7.7); Basophil# 0.07 X10^3/uL; Basophil% 1.2 % (0-1); Eosinophil# 0.07 X10^3/uL; Eosinophils% 1.2 % (0-5); Hematocrit 41.6 % (37-47); Hemoglobin 13.5 g/dL (12.0-15.0); Mean Corp Hgb Conc 32.5 g/dL (32-36); Mean Corpuscular Hgb 30.8 pg (27.0-32.0); Mean Corpuscular Volume 94.8 fL (81-99); Mean Platelet Vol. 9.6 fl (6.2-12.0); Monocyte# 0.41 X10^3/uL; Monocyte% 6.8 % (0-10); NRBC Flagged by Analyzer 0 % (0-5); Neutrophil # 3.94 X10^3/uL (2.7-7.7); Neutrophil % 65.5 % (47-70); Platelet Count 299 K/mm3 (150-450); RBC Distribution Width CV 12.4 % (11.6-14.6); RBC Distribution Width SD 43.7 fl (35.1-43.9); Red Blood Count 4.39 M/mm3 (4.2-5.4)
[2022-11-25 10:01] LABS: Anion Gap 3 (5-15); BUN 8 mg/dL (7-18); Calcium,Total 8.9 mg/dL (8.5-10.1); Chloride 106 mmol/L (98-107); EST Glomerular Filtration Rate 83 mL/min (>60); Est Glom Filt Rate - Afr Amer 101 mL/min (>60); Glucose 81 mg/dL (74-106); Magnesium 2.3 mg/dL (1.6-2.6); Potassium 3.6 mmol/L (3.5-5.1); Sodium Level 137 mmol/L (136-145)
[2022-11-25 10:40] LABS: HIV - WCH Non-Reactive (Nonreactive); Hepatitis B Surface Antibody Non-Reactive; Hepatitis C Antibody Non-Reactive (Nonreactive)
[2022-11-26 07:08] LABS: Hepatitis A AB, Total Negative (Negative)
--- NOTE | 2022-12-05 08:45 | PCM.HP.BLA ---
History and Physical MR#: [id number] Acct: [id number] Name: ROSLYN HEATH Rep #: [id number] : 1980 Provider: Dr. Aung Bear DO Age/Sex: 42/F [place] [facility] [place] Status: Signed Intake Vital Signs 03/17/2213:40 Height 5 ft 5 in Weight: 155 lb BMI 25.7 Intake Visit Reasons: CERVICLE Chief Complaint: neck pain Is patient in pain?: Yes (neck ) Pain scale (1-10): 6 Allergies oxycodone HCl [From Percocet] Allergy (Verified 09/30/22 11:35) Itching Medications ibuprofen 600 mg tablet 600 mg PO Q8H PRN PRN Pain Score 1-3 #30 tabs 11/05/20 [Rx Confirmed 03/17/22] acetaminophen 650 mg tablet,extended release (Tylenol 8 Hour) 650 mg PO Q12H 03/17/22 [History Confirmed 03/17/22] magnesium 250 mg tablet 250 mg PO DAILY 03/17/22 [History Confirmed 03/17/22] omega-3 240 li-azy-drc-cod liver oil 1,000 mg-vit A-vit D3 capsule cap PO 03/17/22 [History Confirmed 03/17/22] PFSH Medical History Headache Infertility Surgical History History of surgery Family History Father HypertensionMother Cancer breast Social History Smoking Status: Never smoker HPI CERVICLE Chief Complaint: neck pain Details: Parts of this documentation were recorded by a scribe, this documentation accurately reflects the service provided and the decisions made by me, Dr. Aung Bear DO 09/30/22 1127. ROSLYN HEATH is a 42 year old F here today for cervical pain. She has been experiencing pain for 2 years. She had an injection with Basali which was somewhat helpful. She has also been getting intensive care medicine specialist. She states her pain has been bearable but she went to stretch her arms Saturday night and she had an immediate increase in pain in her neck and shoulders especially on the left side. She rates her pain 6/10 today and states it fluctuates but it is a constant deep ache and burning that makes her nauseous. She treats pain with Ibuprofen, ice and OTC 'muscle ease' natural supplement. Roslyn returns and not having been seen in quite a while. Just a few days she had an increase in the neck pain on the left side. Its been quite dramatic but definitely worse than it used to be aches going down her left arm now. She states that this is by far the worst its ever been. It has not gotten better since it began. On examination she has positive Spurling's to the left side but only for localized pain. The nerve that she describes in the left arm seems to be the ulnar nerve more I suppose possibly C8. She did have a positive Tinel's at the left elbow. She otherwise has good motor strength of all the major muscle groups of both upper extremities. She has no muscle atrophy. She has 1+ triceps 1+ brachial radialis and 1+ biceps reflexes bilaterally. She has no long tract signs. Clonus is absent and Babinski's are downgoing. I went back over her old MRI scan demonstrates a left-sided protrusion at C6-7. She has some degeneration at 5 6. I told her that I feel because of the dramatic change for the worse in her condition that we should probably start with a new MRI scan of her cervical spine. We will order the MRI scan I will see her after it is done and make further recommendations at that time. Coding Level of Care Code Off vis,est,level 3 Diagnoses Herniation of intervertebral disc at C6-C7 level M50.223 Herniated nucleus pulposus, C6-7 left M50.223 Time Spent (min) 20 Assessment and Plan Assessment and Plan (1) Herniation of intervertebral disc at C6-C7 level: Status: Acute
[2022-12-06] VITALS (12 sets, daily range): BP systolic 104–120; BP diastolic 55–77; PULSE 72–100; RESP 16–18; TEMP 36.4–37.6; O2SAT 98–100; BMI 24.9
[2022-12-06 06:15] LABS: Internal QC Validated? YES +Cl - CLEAR BKGD; Pregnancy, Urine Negative Negative
[2022-12-06] MEDS: Magnesium 1 GM over 15 mins IV (06:23)
[2022-12-06] MEDS: Acetaminophen 500 MG Tablet 1000 MG PO ×2 (06:24→14:43)
[2022-12-06] MEDS: dexAMETHasone 10 MG/ML Vial 8 MG IV (06:25)
[2022-12-06] MEDS: Lactated Ringers 1,000 ML 15 ML IV (06:30)
[2022-12-06 06:43] LABS: Bedside Glucose 142 mg/dL (74-106)
--- NOTE | 2022-12-06 07:30 | DISC_PTH ---
PATIENT: MIGUEL ÁNGEL HEATH LOC: MS3 U#:[id number] AGE/SX: 42/F ROOM: [facility] [place] RE12/06/[address]: Dr. Aung Bear DO : 1980 BED: 1 DIS: 12/07/2022 SPEC #: [id number] RECD: 12/06/22 14:17 STATUS: KAT REJorge #: [id number] NIKITA: 12/06/22 07:[address]: Aung Bear DEPT: SURGICAL PATHOLOGY RECD BY: Rojas Chopra ENTERED: 12/07/22 08:16 SP TYPE: DISC OTHR DR: MD Dr. Fadia Henry MD Dr. Mark Tereletsky, DO Tissues: Intervertebral disc, NOS Procedures: Surgery Specimen Level III HEADER OPERATION: ERAS, anterior cervical fusion C6-C7 PRE-OP DIAGNOSIS: Herniation of intervertebral disc at C6-C7 level TISSUE SUBMITTED: Cervical disc MICROSCOPIC DIAGNOSIS Intervertebral disc C6-C7, discectomy: Fragments of intervertebral disc with degenerative change. AM:helena 12/08/2022 MICROSCOPIC DESCRIPTION Slides are reviewed. GROSS DESCRIPTION Received in fixative is one container labeled with the patient's name and designated cervical disc. The specimen consists of multiple irregular and indurated fragments of mcnally-white soft tissue that in aggregate measure 4.0 x 3.0 x 1.0 cm. Phys Ther portions are submitted in one cassette. / AM:helena 12/07/2022 TC:5 CPT: 26089
[2022-12-06] MEDS: Cefazolin 2 GM in 0.9% Normal Saline (100mL Bag) 100 ML IV (07:53)
--- NOTE | 2022-12-06 08:15 | RAD_ITS ---
STUDY: X-RAY - CERVICAL SPINE REASON FOR EXAM: Female, 42 years old. ANTERIOR FUSION C6-7, LEFT TECHNIQUE: 1 view(s) of the cervical spine were obtained. COMPARISON: None FINDINGS: The localization instrument is seen anterior to the C6-C7 disc space level. RAD/Spine 1 View Any Level IMPRESSION: The localization instrument is seen anterior to the C6-C7 disc space level. Electronically Signed: Benedict Gallardo MD at 10:51 EDT ,
--- NOTE | 2022-12-06 08:36 | RAD_ITS ---
STUDY: X-RAY - LUMBAR SPINE REASON FOR EXAM: Female, 42 years old. ANTERIOR FUSION C6-7 -- #2 TECHNIQUE: One lateral view(s) of the lumbar spine were obtained. COMPARISON: None FINDINGS: The localizing instrument is seen within the anterior aspect of the C6-C7 disc. RAD/Spine 1 View Any Level IMPRESSION: The localization instrument is seen in the anterior aspect of the C6-C7 disc space. Electronically Signed: Benedict Gallardo MD at 10:52 EDT ,
[2022-12-06] MEDS: Heparin 10,000 UNITS/10 ML Vial 10000 UNITS (08:53)
[2022-12-06] MEDS: THROMBIN (RECOMBINANT) 20,000 UNIT VIAL 20000 UNIT TOPICAL (08:53)
--- NOTE | 2022-12-06 10:30 | RAD_ITS ---
STUDY: X-RAY - LUMBAR SPINE REASON FOR EXAM: Female, 42 years old. IMAGE 3 -- FUSION TECHNIQUE: Single lateral view(s) of the lumbar spine were obtained. COMPARISON: Comparison is made with prior study done earlier today. FINDINGS: The patient is status post anterior fusion with prosthetic disc placement at the C6-C7 level. RAD/Spine 1 View Any Level IMPRESSION: Status post anterior fusion and disc placement at the C6-C7 level. Electronically Signed: Benedict Gallardo MD at 10:54 EDT ,
--- NOTE | 2022-12-06 11:34 | PCM.OPRPT ---
Report of Operation Description of Surgical Findings:: Preoperative diagnosis: Herniated disc with foraminal stenosis C6-7 left Postoperative diagnosis: The same Procedures: #1 anterior cervical fusion C6-7 CPT code 40179 #2 anterior spine plate C6-7 CPT code 65307/59 #3 insertion of cage C6-7 CPT code 92730 #4 bone marrow aspirate left crest CPT code 08719 #5 spongy allograft bone CPT code 62056 Surgeon: Dr. Bear Creamery Worker: Alla Cedeno NP Anesthesia: General endotracheal by [facility] EBL: 20 cc Drains: 1/4 inch Warriors Mark Complications: None Procedure: Patient was taken to the OR where she was placed in the spine position on the operating table. She was placed under general endotracheal anesthesia. A Delgadillo catheter was inserted. Neuro monitoring placed her leads on the patient. Shoulder roll was put behind her top of her shoulders to gently extend her neck. A Kerlix was placed from 1 wrist to the other and around her feet. This was to be able to pull the shoulders down. A preoperative x-ray was taken with a needle marker in place so that I could debi the level of the incision. Pulled the shoulders down to do that however it turns out we probably do not need to from then on that was the only time we actually pulled. The neck and the left crest were prepped and draped standard fashion. First we took 60 cc of bone marrow aspirate from the left crest using a Jamshidi needle it was tamped into place and 60 cc of bone marrow aspirate were obtained. These were handed off to the veterinary assistant technician in the room who used the special centrifuge machine to separate the stem cells from other cells and concentrated the stem cells about 10 times she gave those back to us. It was about 3 cc. I then started my incision at the predetermined point. I curved it to the right to the edge of the right sternocleidomastoid muscle in line with longer's lines. Subcutaneous tissues were incised length of skin incision. I then undermined subcutaneous tissues above and below the platysma and a self-retaining retractor was put in place I then split the platysma and longitudinally in line with its fibers. I then exploited the superficial cervical fascia followed by the explantation of the pretracheal fascia. In this fashion I was able to identify the carotid I protected it and kept it on my side but is the right side the trachea and the esophagus were I then retracted to the left. Took an intraoperative x-ray worse we took we found that we were at C7-T1 this was with a needle marker in place. We simply moved up 1 level took another x-ray over the needle in place that demonstrated that we were indeed now at C6-7. The needle was removed and the disc was marked in the midline with cautery. Then cauterized the edge of the coli muscles on either side elevated them with a bangura elevator and then proceeded to put the retractors in place. We used belting inspector retractors under the coli muscles side to side and then up and down with smooth blades to give us good working room. Then cut the anterior annulus with a 15 blade removed and I remove more nucleus from within the disc base with pituitary rongeurs and eventually with small angled curettes once this was removed all the way back to the uncinate process on the left side I then used a mike bur to bur the uncinate process down and enlarge the size of the foramen. This was checked with a nerve root probe and was found to be quite open. Note that that technique we used was a using the mike bur followed by instillation of cold saline this was done repeatedly until the last thin shell of bone was removed with curettes. I then used a curette to remove all the cartilage off both endplates. I did use the mike bur to widen the space by cutting into the uncinate processes on each side with that to make room for a large cage. Took our measurements decided on a 7 mm cage by using a trial. Then used a broach to broach the endplates and to roughen those endplates. Took the measurements with anesthesia pulling on the head of course. We then took the 7 mm large cage that was 16-1/2 x 14 and 7 mm high with 7 degrees of lordosis. We filled it with the spongy allograft bone and then soaked it in the patient's own concentrated stem cells. Was then tamped into place and countersunk a couple of millimeters 24 mm plate was then used note that this was the Spyder plate. Once centered we then used a holding pin to pin one of the 4 holes followed by the use of the awl at the other 3 holes 1 at a time they were punched followed by insertion of the self-tapping screws the screws were then placed to the locking mechanism of the plate. Lastly the pin was removed and another screw was placed there also. We used 14 mm long screws. Prevent adhesions to the trachea or the esophagus we then put a 2 x 3 cm amnionic membrane over the plate. A 1/4 inch Warriors Mark drain was then inserted. Note also that during the course of the case we thoroughly irrigated with copious amounts of sterile saline repeatedly every 10 to 15 minutes. We then approximated the platysma with running fashion with 5-0 Vicryl followed by the subcutaneous tissues with 5-0 Vicryl in interrupted fashion and then a nylon stitch was used in running fashion to approximate the very outer skin. A safety pin was placed through the quarter inch drain to prevent it suction into the wound. Sterile dressings were then applied. Patient was then recovered in the OR she was moved to her hospital bed and taken to recovery in satisfactory condition. This is the end of operative summary on Roslyn Lee. This is Dr. Bear dictating.
[2022-12-06] MEDS: Morphine 4 MG/ML Syringe IV ×2 (13:54→20:20)
[2022-12-06] MEDS: dexAMETHasone 4 MG/ML Vial IV ×2 (14:43→20:26)
--- NOTE | 2022-12-06 16:24 | PN.HOSP_ITS ---
Reason for Visit Reason for Visit: Diagnoses Encounter for other preprocedural examination (12/06/22) Subjective Subjective Patient s/p anterior cervical fusion C6-7, anterior spine plate C6-7, insertion of a cage C6-7, bone marrow aspirate left crest as well as spongy allograft bone per Dr. Bear secondary to history of herniated disc with foraminal stenosis C6-7 with unfortunately ongoing neck pain which has been ongoing for 2 years despite outpatient interventions including injections with pain management as well as care director prompting the intervention. She currently reports some discomfort to the anterior neck region ranging 5-7 although she does report recent oral pain regimen. She notes her pain is certainly improved since prior to the surgery. She denies any upper extremity or lower extremity paresthesias or weakness. Patient denies fevers, chills, nausea, emesis, abdominal pain, chest pain or dyspnea. Objective Data Objective Data Vital Signs: Vital Signs Temp Pulse Resp BP Pulse Ox O2 Del Method O2 Flow Rate 99 F 79 18 120/73 98 Room Air 4 12/06/22 15:59 12/06/22 15:59 12/06/22 15:59 12/06/22 15:59 12/06/22 15:59 12/06/22 15:59 12/06/22 12:30 Oxygen Flow Rate (L/min) 4 Oxygen Delivery Method Room Air Weight: 149 lb 14.629 oz Body Mass Index (BMI) 24.9 Intake & Output: Intake and Output for Last 24 Hours 12/04/22 12/05/22 12/06/22 23:59 23:59 23:59 Intake Total 110 / 110 Output Total 1800 / 1800 Balance -1690 / -1690 Lab / Micro Data 11/25/22 09:10 11/25/22 09:10 Labs: Laboratory Results - last 24 hr 12/06/22 06:05: Urine Test Negative 12/06/22 06:07: POC Glucose 142 H Micro: Microbiology 11/25/22 09:10 Swab (Method) Nasal Screen MRSA/MSSA - Final Radiography Diagnostic Testing: Radiology Impression Spine X-Ray 12/06/22 08:15 IMPRESSION: The localization instrument is seen anterior to the C6-C7 disc space level. Electronically Signed: Benedict Gallardo MD at 10:51 EDT , Spine X-Ray 12/06/22 10:30 IMPRESSION: Status post anterior fusion and disc placement at the C6-C7 level. Electronically Signed: Benedict Gallardo MD at 10:54 EDT , Physical Exam Narrative Physical Examination: General: Awake, alert, oriented x 3 and cooperative, laying in the medical surgical bed, no acute distress, does report some pain but recent pain medication administered and she notes improving. Skin: Normal color, normal turgor, no icterus, no cyanosis except for recent OR with anterior neck dressings in place with no drainage noted. HEENT: AT/NC, EOMI, PERRLA, mildly dry MM. Lungs: CTA bilaterally, moderate effort, mild decrease BL bases, no rales, ronchi or wheezing. Heart: Regular rate and rhythm; no gallop, rub audible. Abdomen: Soft, NTTP, ND, mildly hyperactive BS. Extremities: No cyanosis, clubbing, or edema. Neurological: Patient awake, alert, oriented as noted, cognitive function intact; pupils equally reactive to light and accommodation, cranial nerves II- XII grossly normal, moving all 4 extremities, no focal deficits, strength moderately to severely global decrease secondary to recent surgical interventions but primarily limited because of her recent surgery and limitati ons per surgery discretion. Psychiatric: Affect appears fatigued otherwise normal, no acute evidence of depressive or anxiety feelings. Assessment & Plan Assessment/Plan (1) Herniation of intervertebral disc at C6-C7 level: PLAN: Plan The patient is a 42 y/o F w/ PMHx: Chronic cervical neck pain secondary to herniated disc with foraminal stenosis C6-7, Seizure disorder, Chronic Migraines who presents to the [facility] on 12/06/22 for planned cervical anterior fusion per Dr. Bear. #1. Chronic cervical neck pain secondary to herniated disc with foraminal stenosis C6-7: Failed conservative therapies and treatments, admitted per Dr. Bear s/p 9/19/23 anterior cervical fusion C6-7, anterior spine plate C6-7, insertion of a cage C6-7, bone marrow aspirate left crest as well as spongy allograft , post-operative pain management, bowel regimen, DVT Prophylaxis, PT/OT/CM per Orthopedic surgery discretion. #2. Chronic migraines: Patient normally per records takes as needed xtmpkfkdec-ouhxxkqzyovpw-hxsnmhud, may use these if absolutely necessary. #3. Chart reported history of seizure disorder: Not on any antibiotic drugs, remote from report, encourage continued outpatient follow-up and assessment as needed. #4. DVT prophylaxis: SCDs, chemoprophylaxis per surgery discretion given recent OR. Charges/Coding Visit Charges Inpatient E&M: 99228 Subs Hosp L2
[2022-12-06] MEDS: Lactated Ringers 1,000 ML 100 ML IV (16:27)
[2022-12-06] MEDS: Cefazolin 1 GM/50 ML BAG IV (16:27)
[2022-12-06] MEDS: traMADol 50 MG Tablet PO (17:59)
[2022-12-07] MEDS: Acetaminophen 500 MG Tablet 1000 MG PO ×3 (00:07→15:26)
[2022-12-07] MEDS: traMADol 50 MG Tablet PO ×3 (00:07→12:33)
[2022-12-07] MEDS: Cefazolin 1 GM/50 ML BAG IV (00:08)
[2022-12-07] MEDS: Lactated Ringers 1,000 ML 100 ML IV ×2 (00:13→10:56)
[2022-12-07 04:00] VITALS: BP 105/61; PULSE 69; RESP 16; TEMP 36.6; O2SAT 98
[2022-12-07] MEDS: dexAMETHasone 4 MG/ML Vial 2 MG IV ×2 (04:18→08:56)
[2022-12-07 09:01] VITALS: BP 104/59; PULSE 83; RESP 18; TEMP 36.6; O2SAT 98
[2022-12-07 11:37] VITALS: BP 119/75; PULSE 66; RESP 18; TEMP 36.9; O2SAT 99
[2022-12-07] MEDS: Ondansetron 4 MG/2 ML Vial IV (11:57)
--- NOTE | 2022-12-07 12:55 | CASEMGMT ---
RN PAULINE Face to Face with patient for initial transition planning/care coordination assessment. RN CM introduced self and role at [facility]. Patient lying in bed, alert and oriented with at bedside. Patient willing to participate in assessment and is able to answer all questions appropriately.? Care providers, pharmacy, and demographics verified. Patient wishes to discharge home.? Patient states she has no further needs or concerns at this time. CM to follow for discharge planning needs that may arise. PCP:Shaun Specialists:kierra Bear Pharmacy:[facility] Retail Insurance:[facility] Package Plan Prescription Benefit:?no LNOK:Vijay Lee, Living Arrangements:Pt lives with and 2 year old son in a single story home with 2 steps to enter with a rail. Pt reports she is I in ADL's and denies concerns at home. 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 DME:Pt has a cane and FWW available to her but she does not use AD HHC:Denies hx SNF:Denies hx Disposition Plan: Home
--- NOTE | 2022-12-07 13:11 | DCINST_ITS ---
Discharge Instructions Activity May shower in (days): 5 May resume sexual activity in: 4-6 weeks Lifting Restrictions: 15# Dressing / Incision Remove Dressing in: 4 days Follow Up Care Test Results: Test results from this visit will be discussed in further detail at your follow- up appointment, if applicable. Discharge Plan Admission Admit Date/Time: 12/06/22 05:33 Primary Reason for Your Visit: cervical fusion Attending Provider: Aung Bear Primary Care Provider: Fadia Dunn Consulting Providers: Britney Moy; Niranjan Krishnan Discharge Orders/Prescriptions Prescriptions: No Action acetaminophen [Tylenol 8 Hour] 650 mg tablet extended release 650 mg PO Q12H magnesium 250 mg tablet 250 mg PO DAILY ja8-clf-bvw-cod liver-vit A-D3 240-1,000 mg capsule 1 cap PO DAILY ibuprofen 600 mg Tablet 600 mg PO Q8H PRN PRN (Reason: Pain Score 1-3) Qty: 30 0RF zukvvugvhp-zhegabecxlekr-zaah 50-300-40 mg capsule 1 cap PO BID hydrocodone-acetaminophen 7.5-325 mg tablet 1 tab PO BID PRN (Reason: pain) tramadol 50 mg tablet 50 mg PO Q6H PRN (Reason: pain) 10 Days Qty: 40 0RF Other Ambulatory Orders: 12 Lead EKG (Routine) Timeframe: [id number] Location: None Selected Ordered By: Dr. Aung Bear Referrals / Follow Up: Fadia Dunn MD [Primary Care Provider] - Disposition Disposition (needs filled in before D/C Order can be placed): Home, Self Care
--- NOTE | 2022-12-07 13:13 | PCM.DC.SUM ---
Providers Date of Admission: 12/06/22 Primary Care Physician: Dr. Fadia Dunn MD Attending Physician: This is discharge summary on Roslyn Lee. This patient was admitted yesterday and underwent anterior cervical fusion at the C6-7 level. She is doing well today. I changed her dressing and removed her drain. Her incision is healing well. I gave her and her directions on when to remove the dressing etc. She will make an appointment to see me in the office a week from this Monday. I discharged her voice is clear. And her problem in her arm and hand is completely resolved. Swallowing is beginning to get a lot easier now. I gave him directions on diet etc. I will see her again a week from Monday in the office. Consultations 12/06/22 13:22 Consult: Hospitalist Routine Consulting Provider: Britney Moy Reason for Consult: med management EMERGENT Consult: No MD Notified: Yes Date Notified: 12/06/22 Time Notified: 16:13 Method of Notification: Text Reason For Visit: ERAS, Anterior Cervical Fusion, C6-7 Diagnosis Discharge Diagnosis (1) Herniation of intervertebral disc at C6-C7 level: Status: Acute Code(s): M50.223 - Other cervical disc displacement at C6-C7 level Medications at Discharge Home Medications ibuprofen 600 mg tablet 600 mg PO Q8H PRN PRN Pain Score 1-3 #30 tabs 11/05/20 acetaminophen 650 mg tablet,extended release (Tylenol 8 Hour) 650 mg PO Q12H PAIN 03/17/22 magnesium 250 mg tablet 250 mg PO DAILY SUPPLEMENT 03/17/22 omega-3 240 fi-xxv-rpc-cod liver oil 1,000 mg-vit A-vit D3 capsule 1 cap PO DAILY SUPPLEMENT 03/17/22 pmgcelcviq-pnagttrnfpfqg-kwnymyfn 50 mg-300 mg-40 mg capsule 1 cap PO BID MIGRAINES 11/23/22 hydrocodone 7.5 mg-acetaminophen 325 mg tablet 1 tab PO BID PRN pain 11/23/22 tramadol 50 mg tablet 50 mg PO Q6H PRN pain 10 days #40 tabs 12/07/22 Weight / BMI Weight Weight: 149 lb 14.629 oz Body Mass Index (BMI) 24.9 ABG / Lab / Microbiology Data 11/25/22 09:10 11/25/22 09:10 Microbiology: Microbiology 11/25/22 09:10 Swab (Method) Nasal Screen MRSA/MSSA - Final Radiography Diagnostic Testing: Radiology Impression Spine X-Ray 12/06/22 08:36 IMPRESSION: The localization instrument is seen in the anterior aspect of the C6-C7 disc space. Electronically Signed: Benedict Gallardo MD at 10:52 EDT , D/C Instructions May shower in (days): 5 May resume sexual activity in: 4-6 weeks Meaningful Use Info Meaningful Use Diagnoses (Choose all that apply): None applicable Discharge Plan Admission Admit Date/Time: 12/06/22 05:33 Primary Reason for Your Visit: cervical fusion Attending Provider: Aung Bear Primary Care Provider: Fadia Dunn Consulting Providers: Britney Moy; Niranjan Krishnan Discharge Orders/Prescriptions Prescriptions: No Action acetaminophen [Tylenol 8 Hour] 650 mg tablet extended release 650 mg PO Q12H magnesium 250 mg tablet 250 mg PO DAILY pc0-ygr-dab-cod liver-vit A-D3 240-1,000 mg capsule 1 cap PO DAILY ibuprofen 600 mg Tablet 600 mg PO Q8H PRN PRN (Reason: Pain Score 1-3) Qty: 30 0RF vnvpzxehey-vlfxkbhhfqwuy-jqey 50-300-40 mg capsule 1 cap PO BID hydrocodone-acetaminophen 7.5-325 mg tablet 1 tab PO BID PRN (Reason: pain) tramadol 50 mg tablet 50 mg PO Q6H PRN (Reason: pain) 10 Days Qty: 40 0RF Other Ambulatory Orders: 12 Lead EKG (Routine) Timeframe: [id number] Location: None Selected Ordered By: Dr. Aung Bear Referrals / Follow Up: Fadia Dunn MD [Primary Care Provider] - Disposition Disposition (needs filled in before D/C Order can be placed): Home, Self Care
[2022-12-07 14:39] VITALS: BP 98/59; PULSE 58; RESP 18; TEMP 36.8; O2SAT 97
== END 2022-12-07 15:36 | disposition home or self-care (01) | DRG 473 ==
LOC: ACINP 08:43 → MS3 15:39
PROVIDERS: Anesthesiology; Admitting Provider Orthopaedic Surgery; PCP Family Medicine; Referring Provider Orthopaedic Surgery; Visit Provider Orthopaedic Surgery
PROC: 0RG10K0 Fusion of Cervical Vertebral Joint with Nonautologous Tissue Substitute, Anterior Approach, Anterior Column, Open Approach (ICD-10-PCS; CPT 22551; principal; 2022-12-06 07:00)
DX: M50.223 Other cervical disc displacement at C6-C7 level (principal); G43.709 Chronic migraine without aura, not intractable, without status migrainosus; M48.02 Spinal stenosis, cervical region
CPT/HCPCS: 36415; 72020; 80048; 81025; 82962; 83735; 85025; 86703; 86706; 86708; 86803; 87081; 88304; 93005; 94668; 97161; 97802; 99252; C1713; J7120; G0463; J2405; J3475

== ENCOUNTER 2022-12-09 08:42 | Emergency (ER) | payer OTHER, SELFPAY ==
[2022-12-09 08:43] VITALS: BP 137/84; PULSE 82; RESP 14; TEMP 36.5; O2SAT 100; BMI 25.2
--- NOTE | 2022-12-09 08:57 | CT_ITS ---
STUDY: CT SOFT TISSUE NECK WITH CONTRAST REASON FOR EXAM: Female, 42 years old. s/p cervical fusion with difficulty swallowing three days ago RADIATION DOSAGE (If Supplied By Facility): CTDIvol = ( 14.49 ) mGy, DLP = ( 416.20 ) mGycm TECHNIQUE: The patient was scanned in a multi-detector CT scanner. High resolution transaxial imaging was performed following intravenous administration of IV 100mL Isovue-370. Sagittal and coronal images were reconstructed. Individualized dose optimization techniques were used for this CT. COMPARISON: None. FINDINGS: The patient is status post anterior fusion at the C6-C7 level with the screw and plate fixation device and prosthetic disc placement. There is evidence of a prevertebral soft tissue swelling at that site. Normal bilateral parotid glands. Normal bilateral baling machine operator spaces. Normal bilateral parapharyngeal spaces. Normal bilateral carotid spaces. Normal bilateral sublingual and submandibular glands and spaces. Normal visualized nasopharynx. Normal retropharyngeal space. Normal perivertebral space. Normal visualized bilateral faucial tonsils. The visualized tongue, tongue base and oropharynx are normal. The visualized cervical lymph nodes (levels I-) are within normal size limits, and maintain normal morphology. There is no demonstrated solid or cystic mass lesion. There is no abnormal contrast enhancement. Normal epiglottis, bilateral vallecula and hypopharynx. The pre-epiglottic and paraglottic adipose spaces are normal. Normal visualized bilateral piriform sinuses, aryepiglottic folds, vocal cords, and arytenoid-cricoid articulations. Normal subglottic trachea. Normal bilateral lobes of the thyroid gland. Normal visualized pulmonary apices. Normal visualized paranasal sinuses. CT/Soft Tissue Neck WITH Contrast IMPRESSION: Prevertebral soft tissue swelling anterior to the spinal fusion at the C6-C7 level. Electronically Signed: Benedict Gallardo MD at 10:22 EDT ,
--- NOTE | 2022-12-09 08:58 | EDS_ITS ---
HPI History of Present Illness Chief Complaint: General Illness Informant: patient and spouse/S.O. Onset/Context/Timing Onset: Today Context: Gradual Onset Timing: Continuous Current Severity: Mild Maximum Severity: Mild Narrative Narrative: 42-year-old female status post C6-7 cervical fusion done on Monday here at this facility by Dr. Bear. Patient's been doing well today she feels like there is a lump in her throat and she is having trouble swallowing. Denies fever. Denies a sore throat. She is currently on pain medication. Prior similar symptoms: No Recent Illness/Hospitalization: No PFSH PFSH Medical History Arthritis Headache Infertility Migraine headache Non-smoker Seizures Home Medications ibuprofen 600 mg tablet 600 mg PO Q8H PRN PRN Pain Score 1-3 #30 tabs 11/05/20 [Rx Last Taken Unknown] acetaminophen 650 mg tablet,extended release (Tylenol 8 Hour) 650 mg PO Q12H PAIN 03/17/22 [History Last Taken Unknown] magnesium 250 mg tablet 250 mg PO DAILY SUPPLEMENT 03/17/22 [History Last Taken Unknown] omega-3 240 uz-owu-zgy-cod liver oil 1,000 mg-vit A-vit D3 capsule 1 cap PO DAILY SUPPLEMENT 03/17/22 [History Last Taken Unknown] lqtujilmuc-otffpjupoezpo-czpxqfqe 50 mg-300 mg-40 mg capsule 1 cap PO BID MIGRAINES 11/23/22 [History Last Taken Unknown] hydrocodone 7.5 mg-acetaminophen 325 mg tablet 1 tab PO BID PRN pain 11/23/22 [History Last Taken Unknown] hydrocodone-acetaminophen 5-325mg 5mg-325mg 1 tab PO Q8H PRN pain 1 week #21 tabs 12/09/22 [Rx Last Taken Unknown] Allergy/AdvReac Type Severity Reaction Status Date / Time oxycodone HCl [From Percocet] Allergy Itching Verified 12/09/22 08:44 Family History Father Hypertension Mother Cancer breast Surgical History History of surgery Social History Smoking Status: Never smoker ROS ROS ED ROS Narrative Denies recent illness. Review of Systems ROS Unobtainable: Denies due to encephalopathy Constitutional Constitutional ED: Denies chills or fever(s) Eyes Eyes: Denies blurry vision ENT ENT ED: Denies ear pain Cardiovascular Cardiovascular: Denies chest pain Respiratory/Chest Respiratory/Chest: Denies cough or dyspnea Gastrointestinal Gastrointestinal: Denies abdominal pain Genitourinary Genitourinary ED: Denies dysuria or hematuria Musculoskeletal Musculoskeletal: Denies arthralgias or back pain Integumentary Denies abscess or Abrasions Neurologic Neurologic: Denies headache(s) Psychiatric Psychiatric: Denies anxiety or depression Endocrine Endocrinology: Denies cold intolerance Hematologic/Lymphatic Hematologic/Lymphatic: Reports none Allergic/Immunologic Allergic/Immunologic ED: Denies mouth swelling, tongue swelling or urticaria EXAM Physical Exam Narrative Exam Narrative: 1-year-old female no acute distress. Vital signs stable afebrile. Socks 100% on room air no signs hypoxia. Sitting upright in bed. HEENT exam unremarkable. Posterior pharynx moist and pink. No stridor or drooling. Anterior neck has a well-healing anterior cervical incision at the base of her neck. There is no signs of infection. No significant hematoma externally. No redness or drainage. The wound is dry and clean. Posterior neck unremarkable. Lungs clear. Heart regular rhythm. Abdomen soft nontender. Moving all 4 extremities. Neurologically she is awake and alert. No focal motor deficits. Const Vital Signs: 12/09/22 08:43 12/09/22 08:47 12/09/22 10:48 Temperature 97.7 F L Temperature Source Temporal Pulse Rate 82 68 Respiratory Rate 14 18 Respiratory Pattern Normal Blood Pressure 137/84 H 115/69 Blood Pressure Mean 101 84 Pulse Ox 100 Oxygen Delivery Method Room Air Room Air Positive well nourished and well developed; Negative for obese, cachectic, contractures or unkempt General Appearance ED: well developed and NAD; Negative for unkempt, cachectic, contractures, cyanotic, diaphoretic or pallor Nutritional Appearance: Negative for cachectic or obese HEENT Reports moist mucous membranes Negative for trauma or tenderness Eyes PERRL and EOMs intact bilaterally General Eye ED: Negative for pale conjunctiva or scleral icterus Neck no lymphadenopathy, supple and no JVD Chest Wall inspection of chest normal and palpation of chest normal Chest: Negative for other Resp normal respiratory effort and clear to auscultation bilaterally Effort and Inspection: Negative for retractions Auscultation: Negative for rales, rhonchi or wheezes Cardio regular rate, regular rhythm, S1 normal heart sound, S2 normal heart sound and no murmurs GI normal to inspection, nondistended, normoactive bowel sounds, non-tender, non- distended and no masses Inspection: Negative for abdominal distention Auscultation: normoactive bowel sounds Palpation: soft; Negative for tender or guarding Back/Spine no CVA tenderness General Back: Negative for CVA tenderness Cervical Spine: Negative for cervical spine tenderness Thoracic Spine / Upper Back: Negative for thoracic spinal tenderness Lumbar Spine / Lower Back: Negative for lumbar spinal tenderness Extremity normal to inspection General Extremety ED: Negative for edema or tenderness General Extremity: Negative for edema Neuro oriented x3 and CN's II-XII intact bilaterally Sensorium / Orientation: alert Motor Exam: strength 5/5 throughout Psych mental status grossly normal Appearance: Negative for unkempt Attitude: No agitated Mood & Affect: Negative for depressed or anxious Skin no rashes or lesions noted, no wounds and skin turgor normal General Skin Exam: Negative for jaundice or pallor Rashes: No rashes noted Trauma: Negative for abrasion Wounds: Negative for wounds noted MDM MDM MDM Narrative Medical decision making narrative: 42-year-old female status post cervical fusion surgery. Complaining of a lump and trouble swallowing in her throat. Most likely this is normal postop swelling. A CT with contrast will be obtained to evaluate the soft tissues. She has had no trauma since the surgery. I do not think any labs are necessary at this time. Thang exams patient is doing well. No airway compromise. She is able to swallow without difficulty. She and I went over the CAT scan results along with her . This is normal postop swelling. I spoke to the advance practice provider for Dr. Bear who is currently not available. Patient be discharged home with outpatient follow-up. She was given morphine here for her postop pain. History & Record Review Discussion w/independent historian: Patient Additional record(s) reviewed:: Prior inpatient record, Prior outpatient record, Prior ED visit and Prior labs Radiography Diagnostic Testing: Clinical Impression(s) from Imaging Studies Soft Tissue Neck CT 12/09/22 08:57 IMPRESSION: Prevertebral soft tissue swelling anterior to the spinal fusion at the C6-C7 level. Electronically Signed: Benedict Gallardo MD at 10:22 EDT , Discharge Plan Triage Chief Complaint: General Illness ED Provider: Miguel A Santiago Dx/Rx/DC Orders Clinical Impression: Encounter for post surgical wound check Prescriptions: No Action acetaminophen [Tylenol 8 Hour] 650 mg tablet extended release 650 mg PO Q12H magnesium 250 mg tablet 250 mg PO DAILY di2-xsw-xgv-cod liver-vit A-D3 240-1,000 mg capsule 1 cap PO DAILY ibuprofen 600 mg Tablet 600 mg PO Q8H PRN PRN (Reason: Pain Score 1-3) Qty: 30 0RF yrpefuamfg-uyshlelwhaalw-acaj 50-300-40 mg capsule 1 cap PO BID hydrocodone-acetaminophen 7.5-325 mg tablet 1 tab PO BID PRN (Reason: pain) Hold Instructions: Order Changed hydrocodone-acetaminophen 5-325 mg tablet 1 tab PO Q8H PRN (Reason: pain) 7 Days Qty: 21 0RF Primary Care Provider: Fadia Dunn Referrals: Fadia Dunn MD [Primary Care Provider] - Aung Bear DO [Med Staff - Active Staff] - Keep Martha appointment Activity Restrictions/Additional Instructions: This is normal post op swelling. Your pain medication. Follow-up with your spine surgeon as scheduled. Disposition Disposition: Home, Self Care
[2022-12-09] MEDS: Ondansetron 4 MG/2 ML Vial IV (10:23)
[2022-12-09] MEDS: morphine 8 MG/ML Syringe IV (10:24)
[2022-12-09 10:48] VITALS: BP 115/69; PULSE 68; RESP 18
== END 2022-12-09 11:11 | disposition home or self-care (01) ==
PROVIDERS: Emergency Provider Emergency Medicine; PCP Family Medicine; Visit Provider Emergency Medicine
DX: Z98.890 Other specified postprocedural states (principal); R13.10 Dysphagia, unspecified; G89.18 Other acute postprocedural pain; Z98.1 Arthrodesis status; G43.909 Migraine, unspecified, not intractable, without status migrainosus
CPT/HCPCS: 70491; 96374; 96375; 99282; A4216; J2405

== ENCOUNTER → 2023-02-23 | Outpatient (CLI) | payer SELFPAY, OTHER ==
--- NOTE | 2023-02-23 16:30 | MRI_ITS ---
EXAM: MR LEFT UPPER EXTREMITY WITHOUT INTRAVENOUS CONTRAST, SHOULDER CLINICAL INDICATION: pain TECHNIQUE: Multiplanar and multisequence MR images of the left shoulder without intravenous contrast. COMPARISON: February 01, 2023 FINDINGS: TENDONS: SUPRASPINATUS: Unremarkable. Intact. INFRASPINATUS: Unremarkable. Intact. SUBSCAPULARIS: Unremarkable. Intact. TERES MINOR: Unremarkable. Intact. BICEPS BRACHII, LONG HEAD: Unremarkable. The extra-articular biceps tendon is in the bicipital groove. The intra-articular biceps tendon is normal. LIGAMENTS: GLENOHUMERAL: Unremarkable. Intact. MUSCLES: Unremarkable. No rotator cuff muscle atrophy. FLUID: Small amount of fluid signal in the area of the subacromial/subdeltoid bursa can be seen with bursitis in the appropriate clinical setting. No joint effusion. CARTILAGE: Unremarkable. Articular cartilage intact. GLENOID LABRUM: Unremarkable. Intact, limited evaluation on non-arthrographic exam. BONES/JOINTS: Type II acromion with curved undersurface. No subacromial enthesophyte or os acromiale. No fracture. No abnormal bone marrow signal. OTHER SOFT TISSUES: Unremarkable. No rotator interval edema. MRI/Upper Ext Joint Only(Routine) IMPRESSION: Small amount of fluid signal in the area of the subacromial/subdeltoid bursa can be seen with bursitis in the appropriate clinical setting. No other significant internal derangement. Electronically Signed: Bimal Recinos MD at 23:09 EST ,
== END | disposition home or self-care (01) ==
LOC: MRI 16:08
PROVIDERS: PCP Family Medicine; Referring Provider Orthopaedic Surgery; Visit Provider Orthopaedic Surgery
DX: M25.812 Other specified joint disorders, left shoulder (principal)
CPT/HCPCS: 73221

== ENCOUNTER 2023-05-09 20:19 | Emergency (ER) | payer OTHER, SELFPAY ==
[2023-05-09 20:20] VITALS: BP 126/80; PULSE 61; RESP 20; TEMP 37.2; O2SAT 98
[2023-05-09 20:29] VITALS: BMI 26.6
[2023-05-09] MEDS: DiphenhydrAMINE 50 MG/ML Syringe 25 MG IV (21:11)
[2023-05-09] MEDS: proCHLORPERazine 10 MG/2 ML Vial IV (21:11)
[2023-05-09] MEDS: 0.9% Normal Saline (1000mL) 1,000 ML 999 ML IV (21:11)
[2023-05-09] MEDS: Ketorolac 15 MG/ML Vial IV (21:11)
--- NOTE | 2023-05-09 21:19 | EDS_ITS ---
HPI History of Present Illness Chief Complaint: Headache Narrative Narrative: Patient presenting with multiple complaints. She has a headache, neck pain. She states that she has chronic headache and neck pain. She sees a specialist in [place] who is an [facility] specialist. Patient also has history of C6-C7 herniated disc. 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 She has pain in the left trapezius. She was seen by Dr. Bear who did an x-ray of the cervical spine show the hardware was in place. Patient was placed on [place] 5 mg every 4 hours as needed pain and was given #60. Patient has only been taking these sporadically because she does not like to take pain medication. Patient also placed on Medrol Dosepak and she states took her last dose today. Patient states she developed a headache and she does have a history of headaches but does not have history of migraine. She states she is not sure what her headaches are from but she has been on headache medicine before and she states that when she comes into the ER she gets treated with Toradol, Zofran, Benadryl. States that usually helps her headache. She denies any new trauma. She does state that she has been having more nausea and vomiting today which is new. Patient states for this reason she is now not able to hold down her Stockbridge. Patient has taken Zofran ODT and this does not seem to be helping. [facility] Medical History Arthritis Headache Infertility Migraine headache Non-smoker Seizures Home Medications ibuprofen 600 mg tablet 600 mg PO Q8H PRN PRN Pain Score 1-3 #30 tabs 11/05/20 [Rx Last Taken Unknown] acetaminophen 650 mg tablet,extended release (Tylenol 8 Hour) 650 mg PO Q12H PAIN 03/17/22 [History Last Taken Unknown] magnesium 250 mg tablet 250 mg PO DAILY SUPPLEMENT 03/17/22 [History Last Taken Unknown] omega-3 240 nm-daj-ijz-cod liver oil 1,000 mg-vit A-vit D3 capsule 1 cap PO DAILY SUPPLEMENT 03/17/22 [History Last Taken Unknown] brkwwyykwc-bggbpbyvsmhsw-eemqjrgh 50 mg-300 mg-40 mg capsule 1 cap PO BID MIGRAINES 11/23/22 [History Last Taken Unknown] hydrocodone-acetaminophen 5-325mg 5mg-325mg 1 tab PO Q4H PRN pain 10 days #60 tabs 05/04/23 [Rx Last Taken Unknown] methylprednisolone 4 mg tablets in a dose pack (Medrol (Richard)) See Rx Instr uctions PO PER PKG DIR inflamation 12 days #42 tabs 05/04/23 [Rx Last Taken Unknown] Allergy/AdvReac Type Severity Reaction Status Date / Time oxycodone HCl [From Percocet] Allergy Itching Verified 05/09/23 20:20 Family History Father Hypertension Mother Cancer breast Surgical History History of surgery Social History Smoking Status: Never smoker ROS ROS ED Constitutional Constitutional ED: Denies chills, fever(s) or sweats Eyes Eyes: Denies blurry vision or change in vision ENT ENT ED: Denies ear pain or sore throat Cardiovascular Cardiovascular: Denies chest pain, palpitations or racing heartbeat Respiratory/Chest Respiratory/Chest: Denies cough, dyspnea or sputum Gastrointestinal Gastrointestinal: Reports nausea and vomiting; Denies abdominal pain, constipation or diarrhea Genitourinary Genitourinary ED: Denies dysuria, hematuria or urinary frequency Musculoskeletal Musculoskeletal: Reports neck pain; Denies arthralgias or myalgias Integumentary Denies abscess, Abrasions or rash Neurologic Neurologic: Reports headache(s); Denies paresthesias or weakness Psychiatric Psychiatric: Denies anxiety, depression, suicidal ideation or suicidal thoughts Endocrine Endocrinology: Denies polydipsia or polyuria EXAM Physical Exam Const Vital Signs: 05/09/23 20:20 05/09/23 22:27 Temperature 99 F 0 F L Temperature Source Temporal Pulse Rate 61 85 Respiratory Rate 20 H 16 Blood Pressure 126/80 H 115/71 Blood Pressure Mean 95 85 Pulse Ox 98 98 Oxygen Delivery Method Room Air Positive well nourished General Appearance ED: NAD HEENT Reports moist mucous membranes Eyes PERRL and EOMs intact bilaterally Neck no lymphadenopathy Chest Wall inspection of chest normal Resp normal respiratory effort and clear to auscultation bilaterally Auscultation: Negative for rales, rhonchi or wheezes Cardio regular rate and regular rhythm GI normal to inspection, nondistended, normoactive bowel sounds Back/Spine Back/Spine Narrative: Tenderness palpation the left trapezius and left paraspinal musculature. No midline deformities or step-off. Patient able to turn her head left and right and this is symmetric with pain elicited when turning to the right. No bruising, rashes. Extremity Extremity Narrative: Bilateral upper extremities and 5/5. Neuro oriented x3 and CN's II-XII intact bilaterally Sensorium / Orientation: alert Motor Exam: strength 5/5 throughout Psych mental status grossly normal Skin no rashes or lesions noted MDM MDM MDM Narrative Medical decision making narrative: Patient presenting with headache and neck pain. She states she initially had neck pain which is new several days ago after picking up her child. She is already been seen for this and she had an x-ray done which showed arteries in place. Has been put on [place] but has not been taking it secondary to initially controlled pain and now because she is vomiting. She took Zofran at home without relief of the vomiting. Denies any fevers, chills. She feels that her headache and her nausea and vomiting are due to pain. Patient will be treated with Compazine, Benadryl, Toradol, IV fluids. I do not believe she needs any repeat imaging. Will reevaluate. Reevaluation at 1015 PM the patient is doing much better she states she is ready to go home. She is counseled to follow-up with Dr. Bear. Return precaution discussed. Impression: 1. Headache 2. Acute on chronic neck pain Discharge Plan Triage Chief Complaint: Headache ED Provider: Jose Barnes Dx/Rx/DC Orders Instructions: ED Headache Unspecified Prescriptions: No Action acetaminophen [Tylenol 8 Hour] 650 mg tablet extended release 650 mg PO Q12H magnesium 250 mg tablet 250 mg PO DAILY qe6-xrb-rhl-cod liver-vit A-D3 240-1,000 mg capsule 1 cap PO DAILY hydrocodone-acetaminophen 5-325 mg tablet 1 tab PO Q4H PRN (Reason: pain) 10 Days Qty: 60 0RF methylprednisolone [Medrol (Richard)] 4 mg tablets,dose pack See Rx Instructions PO PER PKG DIR 12 Days Qty: 42 0RF Rx Instructions: PO PER PKG DIR ibuprofen 600 mg Tablet 600 mg PO Q8H PRN PRN (Reason: Pain Score 1-3) Qty: 30 0RF rpuqnimoqc-bvwcavxvzaetu-enpj 50-300-40 mg capsule 1 cap PO BID Primary Care Provider: Fadia Dunn Referrals: Fadia Dunn MD [Primary Care Provider] - Disposition Disposition: Home, Self Care Discharge Date/Time: 05/09/23 22:29
--- OUTSIDE RECORDS SUMMARY | 2023-05-09 21:33 | XMS RPT_ITS | CCD ---
Author Name Unknown Address [address] [place] [address] Organization [facility] Care Team Providers Care Sonar Technician Name Role Phone Sascha Virgen MD Unavailable Unavailable Primary Care Provider UnavailLEATHA Qiu Admitting Unavailable LEATHA ROOT Primary Care Unavailable LEATHA ROOT Attending Unavailable DAT QUINONEZ Consulting Unavailable PROVIDER, UNKNOWN Consulting Unavailable PROVIDER, UNKNOWN Consulting Unavailable PROVIDER, UNKNOWN Consulting Unavailable LEATHA ROOT Admitting Unavailable LEATHA ROOT Primary Care Unavailable LEATHA ROOT Attending Unavailable ALISTAIR QUINONEZCHARY T Consulting Unavailable PROVIDER, UNKNOWN Consulting Unavailable PROVIDER, UNKNOWN Consulting Unavailable PROVIDER, UNKNOWN Consulting Unavailable TAJ QUINONEZRY T Consulting Unavailable JOHN STOKES MD Admitting Unavailable JOHN STOKES MD Primary Care Unavailable JOHN STOKES MD Attending Unavailable PROVIDER, UNKNOWN Consulting Unavailable PROVIDER, UNKNOWN Consulting Unavailable PROVIDER, UNKNOWN Consulting Unavailable SIRIA SOUZA Primary Care Unavailable Siria Souza Primary Care Provider Unavaila DAT Newell MD Unavailable [phone] [place] Unavailable Unavailable OSMIN SONI MD Unavailable Dave STOKES MD Unavailable JOHN QUINONEZ MD Unavailable EVELYN MAJOR MD Unavailable Maximus Eugene Unavailable Unavailable Yessi Spivey Unavailable Unavailable Marcelal Taylor RN Unavailable Unavailable Syl Soni Unavailable Unavailable MAXIMUS EUGENE Unavailable Unavailable CHIARA DEVLIN Unavailable [phone] Unavailable Unavailable RIGO DAWN RN Unavailable Unavailable Allergies Allergy Classification Reported Allergen(s) Allergy Type Date of Onset Reaction(s) Facility (1 source) acetaminophen / oxyCODONE Drug Allergy 8 [facility] Work Phone: (3 sources) Acetaminophen / oxyCODONE; Translations: [OXYCODONE-ACETAMI NOPHEN] Drug Allergy 6 [place] (5 sources) Acetaminophen / oxyCODONE [facility] 2 [facility] Medications Current Medications Medication Drug Class(es) Dates Sig (Normalized) Sig (Original) acetaminophen 500 mg oral tablet (1 source) Start: 12-20-2019 End: 01-19-2020 take 2 tablets by mouth three times daily as needed for pain acetaminophen (TYLENOL) 500 MG tablet Take 2 tablets by mouth 3 times daily as needed for Pain 180 tablet 0 12/20/2019 01/19/2020 Active Acetaminophen / HYDROcodone (7 sources) Opioid Agonist Start: 12-20-2019 HYDROcodone-acetami nophen (NORCO) 5-325 MG per tablet 1 tablet Completed/Discontinued Medications Medication Drug Class(es) Dates Sig (Normalized) Sig (Original) acyclovir 800 mg oral tablet (5 sources) Herpesvirus Nucleoside Analog DNA Polymerase Inhibitor, Herpes Simplex Virus Nucleoside Analog DNA Polymerase Inhibitor, Herpes Zoster Virus Nucleoside Analog DNA Polymerase Inhibitor take 1 tablet by mouth four times daily ACYCLOVIR, 800MG (Oral Tablet) ; 1 qid (800 MG) Status: Inactive amoxicillin 875 mg / clavulanate 125 mg oral tablet (5 sources) Penicillin-class Antibacterial Start: 12-30-2021 End: 01-09-2022 take 1 tablet by mouth twice daily Amoxicillin-Pot Clavulanate 875-125 MG Oral Tablet ; 1 (one) Tablet two times daily for 10 days Quantity: 20 {Tablet} Refills: 0 Ordered: 12-Jan-2022 HENRI ATWOOD Start: 30-Dec-2021 End: 09-Jan-2022 Status: Inactive azithromycin 250 mg oral tablet (10 sources) Macrolide Antimicrobial Start: 03-18-2014 End: 03-23-2014 AZITHROMYCIN, 250MG (Oral Tablet) ; 2 x 1 then 1 x 4 Tablet daily for 5 days Quantity: 1 {Tablet} Refills: 0 Ordered: 18-Mar-2014 MD Dave STOKES Start: 18-Mar-2014 End: 23-Mar-2014 Status: Inactive Comments: take two tablets day one and then one tablet daily for 4 days Problems Active Problems Problem Classification Problem Date Documented Date Episodic/Chronic Administrative/socia l admission (10 sources) Patient encounter status; Translations: [Counseling, unspecified] 01-12-2022 Episodic Esophageal disorders (8 sources) Gastroesophageal reflux disease; Translations: [Gastro-esophageal reflux disease without esophagitis] 05-09-2023 Chronic Fracture of lower limb (2 sources) Fracture of tibial plateau; Translations: [Fracture of right tibial plateau] Onset: 12-19-2019 12-19-2019 Episodic Headache; including migraine (10 sources) Headache; Translations: [Headache] 10-17-2013 Episodic Past or Other Problems Problem Classification Problem Date Documented Da te Episodic/Chronic Headache; including migraine (20 sources) Headache; including migraine 12-30-2021 Unclassified (1 source) Problem Unclassified (5 sources) !Patient notification of lab results - Dr. Stokes. The test(s) that you had done were/was blood work (D/W pt on phone 01.13.22 6:08 pmYour bilirubin level was slightly elevated. Some patients have a condition known as Gilbert's Syndrome that is manifest by a higher than normal bilirubin level. It is really not a disease, as it does not pose a threat to your health and once we are confident of the diagnosis, further testing isn't necessary. Since all of your other liver tests were normal, I don't think there is any concern. I would simply have you get the lab repeated in 12 months to assure that the level is stable.The CT scans were normal but I will send a prescription for 2 weeks of antibiotic to treat this as a partially treated sinus infection.). You should call our office if you have any questions. 01-13-2022 Unclassified (5 sources) Ear pain - Note for Ear pain : Pt was seen 12/30/21 and given antibiotics for sinusitis. The medication has not helped. She is still having pain in her right ear and behind her right eye. She did have shingles on the right side of her faced about 10 years ago and the pain/tingling feeling is similar. 01-12-2022 Unclassified (5 sources) !Patient notification of lab results 1 - Chiot. The test(s) that you had done were/was a carotid artery ultrasound. The results of your testing were normal (as expected for someone your age, your arteries are totally clear.) . 08-28-2014 Unclassified (5 sources) !Patient notification of lab results 1 - Oraciocyndi. The test(s) that you had done were/was blood work (The lymphocyte count was slightly low. These are cells that help fight viral infections. They were not so low that I am concerned that you will have a problem with infection, but the count should be repeated in 3 months to be certain that it is stable. One or more of your liver function tests were slightly elevated. This can result from any number of causes such as fatty deposits in the liver or irritation due to a medication. I don't feel that these are elevated to the point of being a critical concern, but I would recommend that we repeat them in 3 months to verify that they are stable.Overall, the labs did not concern me that the symptoms are more involved than what we discussed in the office with the likelihood that this is a viral illness). 03-19-2014 Unclassified (5 sources) cough - The onset of the cough has been acute and has been occurring for days. The cough is characterized as dry. The symptoms have been associated with chest pain (Pt said tightness), fever and sore throat. Note for cough : Pt also has body aches, sinus pressure, and nausea & vomiting. Here for exam. 03-18-2014 Unclassified (5 sources) sore throat - The sore throat has been occurring for 5 days. The course has been worsening. The symptoms have been associated with cough, ear pain (Right) and sinus pain. Note for sore throat : chest feels tight. Here for exam. 03-05-2013 Unclassified (5 sources) !Patient notification of lab results 1 - Dr. Quinonez. The test(s) that you had done were/was blood work. The results of your testing were normal . You should call our office to schedule a referral (recommend getting a colonoscopy). Please note that we have included copies of your results. 09-27-2012 Unclassified (5 sources) cough - The cough has been occurring for 5 days. The symptoms have been associated with chest pain (tightness). Note for cough : . 03-29-2012 Unclassified (5 sources) Neck Pain - The last clinic visit was 6 day(s) ago. Symptoms include neck pain. Associated symptoms include upper extremity paresthesias and upper extremity weakness. Note for Neck pain : CT done on 12/19/11, R sided pain improved, now c/o L sided neck pain.. 12-22-2011 Unclassified (5 sources) !Patient notification of lab results 1 - Dr. Soni. The test(s) that you had done were/was x-rays (of your neck). Your tests showed the following abnormalities: possible fracture . You should call our office to schedule an appointment for additional testing (to get a CT exam of your neck, to check this out better). 12-19-2011 Unclassified (5 sources) !Patient notification of lab results 1 - Dr. Major. The test(s) that you had done were/was a CT scan. Your tests showed the following abnormalities: severe degenerative disease . Please follow up as scheduled. 12-19-2011 Unclassified (5 sources) Shoulder pain - The onset of the shoulder pain has been sudden following no specific incident and has been occurring for 1 week. The course has been gradually worsening. The shoulder pain is described as being located in the right shoulder. Associated features include: muscle weakness. Note for Shoulder pain : Right side is weak and balance is off. Chiropractor recommended she see family DrPreethi 12-16-2011 Unclassified (5 sources) Transition into care - The patient most recently received care from an emergency room ([place] [facility] on 09-27-11 for shingles on right forehead. Finished prednisone and continues with acyclovir.). Note for Transition into care : . 10-03-2011 Unclassified (4 sources) Gastroesophageal Reflux Disease - Symptoms include acid taste in the mouth, while symptoms do not include pain (Feeling of fullness upper abdomen.), heartburn, sore throat or dysphagia. Symptoms are located in the upper abdomen. There is no radiation. Onset was 1 year(s) ago. Associated symptoms include belching. 05-09-2023 Results Test Name Value Interpretation Reference Range Facil ity Vital Signs Date Time Vital Sign Value Performing Clinician Cathryn gill 05-09-2023 14:30-0500 Body height 163.19 cm RIGO DAWN RN [facility] [employer] [facility] [employer] [facility] 05-09-2023 14:30-0500 Body mass index (BMI) [Ratio] 27.08 kg/m2 RIGO GRATE RN [facility] [employer] [facility] [employer] [facility] 05-09-2023 14:30-0500 Body surface area Derived from formula 1.78 m2 RIGO GRATE EL [facility] [employer] [facility] [employer] [facility] 05-09-2023 14:30-0500 Body weight 72.12 kg RIGO GRATE EL [facility] [employer] [facility], [facility]. 05-09-2023 14:30-0500 Diastolic blood pressure 68 mm[Hg] RIGO GRATE EL [facility] [employer] [facility] [employer] [facility] Encounters Encounter Date Encounter Type Care Provider Facility Start: 05-09-2023 Review DAT Kaur Work Phone: [facility] [employer] [facility] Start: 05-09-2023 End: 05-09-2023 Office outpatient visit 15 minutes DAT QUINONEZ MD [facility] Start: 05-09-2023 Review DAT Kaur [facility]: [facility] Start: 12-08-2022 End: 12-08-2022 Historical Summary DAT QUINONEZ MD [facility] [employer] [facility]. Start: 10-17-2022 End: 10-17-2022 Historical Summary DAT QUINONEZ MD Work Phone: [facility] [employer] [facility]. Start: 08-20-2022 End: 08-20-2022 ambulatory SIRIA SOUZA Facility:[facility] Start: 08-20-2022 End: 08-20-2022 Patient encounter procedure Anaid Hooks PA-C Work Phone: [facility] Procedures Date Procedure Procedure Detail Performing Clinician Start: 11-18-2022 End: 11-18-2022 C6/7 anterior fusion R JOHN STOKES MD Work Phone: Plan of Treatment Date Care Activity Detail Author Start: 05-09-2023 C-reactive protein C-REACTIVE PROTEIN ([id number]) Start: 09-May-2023 15:33 Request [employer]: [employer].; [employer] Start: 05-09-2023 Comprehensive metabolic panel CMP - COMPREHENSIVE METABOLIC PANEL ([id number]) Start: 09-May-2023 15:33 Request [employer]: [employer].; [employer]. Start: 05-09-2023 Blood count complete auto&auto difrntl wbc CBC, PLATELETS & AUT DIFF ([id number]) Start: 09-May-2023 15:33 Request [employer]: [employer].; [employer]. Start: 05-09-2023 Patient encounter procedure Medical; ACUTE ILLNESS - indigestion [employer]. Start: 09-May-2023 14:45 MD Dave STOKES Appointment Request [employer]. Start: 05-09-2023 Patient Education GERD Indication: Gastroesophageal reflux disease, unspecified whether esophagitis present Start: 09-May-2023 Instruction Type: Patient Education Picateers; [employer]. Start: 11-18-2022 [facility] Start: 03-20-2022 DEPRESSION ASSESSMENT DEPRESSION ASSESSMENT [facility] Start: 11-19-2019 Influenza vaccination Flu vaccine (#1) [place] Start: 2019 Lipid panel Lipid screen [place] Start: [address] [facility] Start: 2019 Screening for malignant neoplasm of breast Breast cancer screen [place] Start: 10-24-2017 End: 10-24-2017 Appointment Appointment [facility] Work Phone: Start: 08-25-2014 Duplex scan extracranial art compl bi study CAROTID DOPPLER ([id number]) Start: 25-Aug-2014 Intent [employer]; [employer]. Start: 10-17-2013 Mri brain brain stem w/o w/contrast material MRI BRAIN W/O & W/DYE ([id number]) Start: 17-Oct-2013 [facility] [employer]icate[employer]; [employer]. Start: 03-05-2013 Patient Education Common Cold *: cold Indication: Acute upper respiratory infection Start: 05-Mar-2013 Instruction Type: Patient Education [employer]; [employer]. Start: 12-19-2011 Ct cervical spine w/o contrast material CT CERVICLE SPINE W/O DYE ([id number]) Start: 19-Dec-2011 [facility]; [facility] Work Phone: Start: 12-16-2011 Mri spinal canal cervical w/o contrast matrl MRI CERVICLE SPINE W/O DYE ([id number]) Start: 16-Dec-2011 [facility] [employer]; [employer]. Start: 12-16-2011 Patient Education HNP Indication: NECK PAIN (Renamed from Cervical pain) Start: 16-Dec-2011 Instruction Type: Patient Education Picateers; [employer]. Start: 12-16-2011 Radex spine cervical 4 or 5 views X-RAY EXAM OF NECK SPINE - COMPLETE - 3 VIEWS ([id number]) Start: 16-Dec-2011 [facility] Picateers; [employer]. Start: 2009 [address] [facility] Start: 01-23-2000 PAP TESTING PAP TESTING [facility] Start: 01-23-2000 Screening for malignant neoplasm of cervix Cervical cancer screen [place] Start: 1998 DTaP/Tdap/Td vaccine (1 - Tdap) DTaP/Tdap/Td vaccine (1 - Tdap) [place] Start: 1998 Urine microalbumin profile DTAP,TDAP,TD (1 - Tdap) [facility] Start: 1997 HEPATITIS C SCREENING HEPATITIS C SCREENING [facility] Start: 1997 HIV SCREENING HIV SCREENING [facility] Start: 1994 HIV screening HIV screen [place] Start: 1979 COVID-19 VACCINE (#1) COVID-19 VACCINE (#1) [facility] Start: 1979 HEPATITIS B (1 of 3 - 3-dose series) HEPATITIS B (1 of 3 - 3-dose series) [facility] End: 12-19-2019 Add On Lab Test Add On Lab Test Lab Add-On One Time for 1 Occurrences starting 12/19/2019 until 12/19/2019 [place] Immunizations Immunization Date Immunization Notes Care Provider Campbell arredondo No information available. Pawan Borges AT [facility] Work Phone: Payers Date Payer Category Payer Unknown [id number] Unknown Social History Date Type Detail Facility Start: 12-21-2019 Tobacco smoking status NHIS Never smoker [facility] Start: 12-21-2019 Tobacco use and exposure Never used [place] Start: 12-21-2019 Alcohol intake Current drinke r of alcohol (finding) [place] Start: 12-19-2019 History SDOH Alcohol Frequency 1 [place] Start: 12-19-2019 Alcohol Comment 1 glass of win e a month [place] Start: 1980 Sex Assigned At Not on file [place] Exposure to SARS-CoV-2 (event) Not sure [place] Start: 08-20-2022 Alcohol intake Current non-dr edge inker heels of alcohol (finding) [facility] Alcohol Use: Alcohol Use: ; Occasional alcohol use. [employer] [facility] Tobacco use: Tobacco use: ; N ever smoker. [employer]: [employer] [facility] [employer] [facility] Work Phone: Occasional alcoh ol use [facility]; [employer] [facility] Work Phone: Alcohol Use: Alcohol Use: ; N o Alcohol Use. [facility].; [facility] [employer] [facility]. 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 Author Type: Physician Atmospheric Scientist Type: Progress Notes Filed: 08/20/2022 12:58 PM Note Text: This note was created using [employer]. Subjective Roslyn Lee is a 42 year old female. HPI Presents with a chief complaint of sore throat over the past 4 days. Her son had a sore throat and some blisters in his throat as well last week. She states he actually ended up spending a few days in the hospital for a viral illness plus staph infection on his skin. She denies a fever. No runny nose or congestion. No diarrhea. This morning she had a couple dry cough but really has not been coughing much. She has tried some Advil zlmn-oek-ntfiowt and cold medication. No rash anywhere. Review of Systems HENT: Positive for sore throat. Negative for congestion, mouth sores, sinus pressure and sinus pain. Respiratory: Positive for cough. Gastrointestinal: Negative. Genitourinary: Negative. Musculoskeletal: Negative. Neurological: Positive for headaches. All other systems reviewed and are negative. No past medical history on file. Current Outpatient Medications Medication Sig Dispense Refill ondansetron orally disintegrating (ZOFRAN ODT) 4 mg disintegrating tablet Take 1 tablet by mouth once daily. 30 tablet meloxicam (MOBIC) 7.5 mg tablet Take 7.5 mg by mouth once daily. predniSONE (DELTASONE) 10 mg tablet Take 4 tabs daily for 3 days, then 2 tabs daily for 3 days, then 1 tab daily for 3 days with food. 21 tablet 0 fentaNYL (DURAGESIC) 12 mcg/hr pt72 Apply 1 Patch as directed every 72 hours. 10 Patch 0 HYDROcodone-Acetaminophen (NORCO) 7.5-325 mg per tablet Take 1 tablet by mouth every 6 hours as needed for Pain. (Patient not taking: Reported on 08/20/2022) 14 tablet 0 No current facility-administered medications for this visit. PAST SURGICAL HISTORY Procedure Laterality Date PAST SURGICAL HISTORY OF Right 2014 Right shoulder surgery FAMILY HISTORY Problem Relation Age of Onset Breast Cancer Mother Hypertension Father Cancer Paternal Grandfather Heart Maternal Grandmother Social History Tobacco Use Smoking status: Never Substance Use Topics Alcohol use: No Drug use: No Objective BP 118/76 Pulse 85 Temp 37.3 ?C (99.1 ?F) Resp 21 Wt 69.6 kg (153 lb 6.4 oz) LMP 06/14/2015 SpO2 97% BMI 25.53 kg/m? Physical Exam Vitals reviewed. Constitutional: Appearance: Normal appearance. HENT: Head: Normocephalic and atraumatic. Right Ear: Tympanic membrane, ear canal and external ear normal. Left Ear: Tympanic membrane, ear canal and external ear normal. Nose: Nose normal. Mouth/Throat: Mouth: Mucous membranes are moist. Pharynx: Oropharyngeal exudate and posterior oropharyngeal erythema present. No pharyngeal swelling or uvula swelling. Tonsils: No tonsillar exudate or tonsillar abscesses. 1+ on the right. 1+ on the left. Cardiovascular: Rate and Rhythm: Normal rate and regular rhythm. Heart sounds: Normal heart sounds. Pulmonary: Effort: Pulmonary effort is normal. Breath sounds: Normal breath sounds. Musculoskeletal: Cervical back: Neck supple. Lymphadenopathy: Cervical: Cervical adenopathy present. Skin: General: Skin is warm and dry. Neurological: Mental Status: She is alert. Assessment and Plan ASSESSMENT/PLAN: 1. Sore throat - ICD9: 462, ICD10: J02.9 - Alere Strep Test negative, no culture pending - Discussed supportive care treatment with fluids, rest and analgesia. - The patient may also use warm salt water gargles, throat lozenges and/or OTC throat spray as needed. - The patient should follow up in 3-5 days if symptoms persist or worsen - STREP A MOLECULAR (POC) Anaid Hooks PA-C [facility] History of Present illness Narrative 08-20-2022 Anaid Hooks PA-C - 08/20/2022 12:49 PM EDT Note Date & Type Note Facility 08-20-2022 History of Presen t illness Narrative This note was created using [employer]. Subjective Roslyn Lee is a 42 year old female. HPI Presents with a chief complaint of sore throat over the past 4 days. Her son had a sore throat and some blisters in his throat as well last week. She states he actually ended up spending a few days in the hospital for a viral illness plus staph infection on his skin. She denies a fever. No runny nose or congestion. No diarrhea. This morning she had a couple dry cough but really has not been coughing much. She has tried some Advil jqvk-nlo-lzmqhow and cold medication. No rash anywhere. Review of Systems HENT: Positive for sore throat. Negative for congestion, mouth sores, sinus pressure and sinus pain. Respiratory: Positive for cough. Gastrointestinal: Negative. Genitourinary: Negative. Musculoskeletal: Negative. Neurological: Positive for headaches. All other systems reviewed and are negative. No past medical history on file. Current Outpatient Medications Medication Sig Dispense Refill ondansetron orally disintegrating (ZOFRAN ODT) 4 mg disintegrating tablet Take 1 tablet by mouth once daily. 30 tablet meloxicam (MOBIC) 7.5 mg tablet Take 7.5 mg by mouth once daily. predniSONE (DELTASONE) 10 mg tablet Take 4 tabs daily for 3 days, then 2 tabs daily for 3 days, then 1 tab daily for 3 days with food. 21 tablet 0 fentaNYL (DURAGESIC) 12 mcg/hr pt72 Apply 1 Patch as directed every 72 hours. 10 Patch 0 HYDROcodone-Acetaminophen (NORCO) 7.5-325 mg per tablet Take 1 tablet by mouth every 6 hours as needed for Pain. (Patient not taking: Reported on 08/20/2022) 14 tablet 0 No current facility-administered medications for this visit. PAST SURGICAL HISTORY Procedure Laterality Date PAST SURGICAL HISTORY OF Right 2014 Right shoulder surgery FAMILY HISTORY Problem Relation Age of Onset Breast Cancer Mother Hypertension Father Cancer Paternal Grandfather Heart Maternal Grandmother Social History Tobacco Use Smoking status: Never Substance Use Topics Alcohol use: No Drug use: No Objective BP 118/76 Pulse 85 Temp 37.3 C (99.1 F) Resp 21 Wt 69.6 kg (153 lb 6.4 oz) LMP 06/14/2015 SpO2 97% BMI 25.53 kg/m Physical Exam Vitals reviewed. Constitutional: Appearance: Normal appearance. HENT: Head: Normocephalic and atraumatic. Right Ear: Tympanic membrane, ear canal and external ear normal. Left Ear: Tympanic membrane, ear canal and external ear normal. Nose: Nose normal. Mouth/Throat: Mouth: Mucous membranes are moist. Pharynx: Oropharyngeal exudate and posterior oropharyngeal erythema present. No pharyngeal swelling or uvula swelling. Tonsils: No tonsillar exudate or tonsillar abscesses. 1+ on the right. 1+ on the left. Cardiovascular: Rate and Rhythm: Normal rate and regular rhythm. Heart sounds: Normal heart sounds. Pulmonary: Effort: Pulmonary effort is normal. Breath sounds: Normal breath sounds. Musculoskeletal: Cervical back: Neck supple. Lymphadenopathy: Cervical: Cervical adenopathy present. Skin: General: Skin is warm and dry. Neurological: Mental Status: She is alert. Assessment and Plan ASSESSMENT/PLAN: 1. Sore throat - ICD9: 462, ICD10: J02.9 - Alere Strep Test negative, no culture pending - Discussed supportive care treatment with fluids, rest and analgesia. - The patient may also use warm salt water gargles, throat lozenges and/or OTC throat spray as needed. - The patient should follow up in 3-5 days if symptoms persist or worsen - STREP A MOLECULAR (POC) Anaid Hooks PA-C documented in this encounter [facility] Instructions 08-20-2022 Patient Instructions Note Date & Type Note Facility 08-20-2022 Instructions Anaid Hooks PA-C - 08/20/2022 12:35 PM EDT Cepacol throat lozenges Ibuprofen 600 mg every 6-8 hours Tylenol 500-100mg every 4-6 hours ( max 4000mg a day) Cool or warm liquids Honey If not better after 7-10 days of symptoms be seen again. documented in this encounter [facility] Evaluation note Note Date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
[2023-05-09 22:27] VITALS: BP 115/71; PULSE 85; RESP 16; TEMP -17.7; TEMP 0; O2SAT 98
== END 2023-05-09 22:29 | disposition home or self-care (01) ==
PROVIDERS: Emergency Provider Student in an Organized Health Care Education/Training Program; PCP Family Medicine; Visit Provider Student in an Organized Health Care Education/Training Program
DX: R51.9 Headache, unspecified (principal); R11.10 Vomiting, unspecified; M54.2 Cervicalgia; X58.XXXA Exposure to other specified factors, initial encounter; Y93.89 Activity, other specified; Z79.899 Other long term (current) drug therapy
CPT/HCPCS: 96361; 96374; 96375; 99283; J7030; A4216

== ENCOUNTER → 2023-06-06 | Outpatient (CLI) | payer SELFPAY ==
--- NOTE | 2023-06-06 07:25 | MRI_ITS ---
HISTORY: pain. TECHNIQUE: Multiplanar and multisequence MR images of the cervical spine were obtained without contrast. 254 images. COMPARISON: XR 05/04/2023, MR 10/06/2022. FINDINGS: VERTEBRAE: Vertebral body heights are maintained. Artifact from C6-7 anterior spinal fusion hardware. No significant bone marrow signal abnormality. VERTEBRAL ALIGNMENT: No anterior or posterior subluxation. SPINAL CORD: Cervical cord signal and morphology within normal limits with limited evaluation at the postoperative level due to artifact. SOFT TISSUES: No prevertebral fluid collection. INTERVERTEBRAL DISCS: C2-3: No significant posterior disc protrusion, central canal stenosis, or foraminal narrowing. C3-4: No significant posterior disc protrusion or central canal stenosis. Mild uncovertebral and facet arthropathy resulting in mild left foraminal narrowing, similar to prior. C4-5: No significant posterior disc protrusion, central canal stenosis, or foraminal narrowing. C5-6: Mild posterior disc protrusion resulting in minimal narrowing of the thecal sac, similar to prior. No significant foraminal narrowing. C6-7: Artifact from interbody fusion material. Interval discectomy with resolution of mild cord impingement. Increased uncovertebral and facet arthropathy resulting in mild central canal stenosis and bilateral foraminal narrowing. C7-T1: No significant posterior disc protrusion, central canal stenosis, or foraminal narrowing. Small bilateral perineural cysts again seen. MRI/Spine Cervical (Routine) IMPRESSION: ACDF C6-7 with interval resolution of mild cord impingement. Mildly increased degenerative change of the C6-7 posterior elements with osteophytes resulting in mild spinal canal stenosis and bilateral foraminal narrowing. Mild degenerative changes of the posterior elements at C3-4 with small osteophytes, again resulting in mild left foraminal narrowing. Electronically Signed: Sue Verdugo MD at 15:17 EDT ,
== END | disposition home or self-care (01) ==
PROVIDERS: PCP Family Medicine; Referring Provider Orthopaedic Surgery; Visit Provider Orthopaedic Surgery
DX: M54.2 Cervicalgia (principal); Z98.1 Arthrodesis status
CPT/HCPCS: 72141

== ENCOUNTER 2023-07-17 12:30 | Outpatient (RCR) | payer SELFPAY ==
--- NOTE | 2023-06-30 14:42 | HP.PTEVAL ---
Patient's Visit Information Visit Information Visit Information: MIGUEL ÁNGEL HEATH is a 43 year old F referred to Physical Therapy by Dr. Dontae Gonzalez MD with a diagnosis of Neck pain. Date of Evaluation: 06/30/23 Physical Therapist: David Amos, DPT, OCS, CSCS Visit Plan Frequency: 3x /Week Duration: 4 Weeks Plan: 3x/week for 2-4 weeks as needed for.. start with MH and STM to L neck focussing on SCM, UT and scalenes, subocc, may do US to scm thermal, and neck PROM( not overly aggressive with end range of motion rotation) manually and ex black AROM do this for two weeks while we can gradually progress strength when pain better inclduing neck isometrics, scap strength and UE strength to HEP eventually Subjective Subjective: Here for my neck adn L shoulder. For last number of years has had neck and arm pain and had surgery last November for neck fusion Dr. Bear. The extreme pain was much better after surgery in L UT area. Surgery did not help arm pain. First week in April picked up son and turned head L and got bad pain in L neck and UT again and has had much pain since. Dr. Bear did MRI and looked good and sent to Dr. Gonzalez who gave her injections in L UT area a week ago. Injections did not help but is more burny now. Muscle feel tight and bunched on L neck. Pain in L neck 6/10 which is constant and less in the am and worse with arm pain and has to take pain pill as it gets to 9/10. L arm pain is constant. Feels restricted in L hand. Chiropractic helped arm pain with trigger point. No numbness or tingling. Sleep is interrupted as it is hard to fall asleep with L neck pain and uncomfortable. Not employed. Basic ADLs are getting done barely, has to help clean the house. No regular exercise for neck or arm. Pain L neck UT: Pain Intensity (Out of 10): 6 Pain Intensity Range: 3, 6 and 9 Objective Objective: FW head and elevated scap posture. Tenderness moderately to maximally on L UT, lev scap and SCM. 75 L rotation and 35 R rotation with pain on L shoulder, 35 extension pain central, retraction is painful L side. R rotation much better with pressure to mastoid portion of SCM on L. UE AROM WFL but hesitant to elevate due to pain, scap ROM is good but painful L to retract and elevate. elbow and wrist AROM WFL. Strength is near symmetrical without myotomal problems UE at 3+/5, all are painful L neck. reflexes 2/3 bi and tri Sensation EU WNL to gross light touch. - cervical compression. weakness obvious in retraction hold in supine. Balance/Special Test Scores Oswestry Neck Score: 34 Goals Goal 1:: sleep at night without interruption Goal Time Frame: 4-6 Weeks Goal 2:: Pt turn head 55 B rotation without pain and feel 75% better overall Goal Time Frame: 4-6 Weeks Goal 3:: I appropriate strength and ROM and posture to neck to minimize future problems Goal Time Frame: 4-6 Weeks Goal 4:: Neck oswestry 10 or less Goal Time Frame: 4-6 Weeks Rehabilitation Potential Physical Therapy Diagnosis: limited ROM and strength and discomfort causing funcitonal deficits Rehabilitation Potential: Fair Anticipated Interventions Patient/Client Instruction: Educate patient on: Condition For the Purpose of:: To decrease pain, To increase ROM, To improve nutrient delivery to tissue, To improve muscle performance and motor function, To increase tolerance to activity/condition/position and To improve ability of physical actions for home/community/work/leisure Therapeutic Exercise to Include: Strength training, Postural training, Flexibilty training, Passive ROM and Active ROM For the Purpose of:: To decrease pain, To increase ROM, To improve nutrient delivery to tissue, To improve muscle performance and motor function, To increase tolerance to activity/condition/position, To improve ability of physical actions for home/community/work/leisure and To improve gait and locomotor functions Manual Therapy Techniques to Include: Passive ROM and Soft tissue mobilization For the Purpose of:: To decrease pain, To decrease swelling/inflammation, To improve nutrient delivery to tissue, To increase tolerance to activity/condition/position and To improve ability of physical actions for home/community/work/leisure Thermo therapy (hot pack): Yes Ultrasound (thermal/non thermal): Yes (thermal) For the Purpose of:: To decrease pain, To decrease swelling/inflammation, To improve nutrient delivery to tissue and To increase oxygenation perfusion Text: Thank you for the opportunity to evaluate your patient. For Medicare and Medicare HMO plans, please review the plan of care and approve it. It will need to be FAXED BACK to us at [phone] for Medicare purposes. For Medicare only, by signing this I certify the plan of care. Please let me know if there are questions or concerns regarding this plan of care. Physician Signature: Date:
--- NOTE | 2023-10-25 08:03 | HP.PT.NRP ---
Patient Information Patient Information: MIGUEL ÁNGEL HEATH was seen in my office for initial evaluation on 06/30/23. The following Plan of Care was established for this patient: POC Established Initial Frequency: 3x /Week Initial Duration: 4 Weeks Anticipated Interventions Patient/Client Instruction: Educate patient on: Condition For the Purpose of:: To decrease pain, To increase ROM, To improve nutrient delivery to tissue, To improve muscle performance and motor function, To increase tolerance to activity/condition/position and To improve ability of physical actions for home/community/work/leisure Therapeutic Exercise to Include: Strength training, Postural training, Flexibilty training, Passive ROM and Active ROM For the Purpose of:: To decrease pain, To increase ROM, To improve nutrient delivery to tissue, To improve muscle performance and motor function, To increase tolerance to activity/condition/position, To improve ability of physical actions for home/community/work/leisure and To improve gait and locomotor functions Manual Therapy Techniques to Include: Passive ROM and Soft tissue mobilization For the Purpose of:: To decrease pain, To decrease swelling/inflammation, To improve nutrient delivery to tissue, To increase tolerance to activity/condition/position and To improve ability of physical actions for home/community/work/leisure Thermo therapy (hot pack): Yes Ultrasound (thermal/non thermal): Yes (thermal) For the Purpose of:: To decrease pain, To decrease swelling/inflammation, To improve nutrient delivery to tissue and To increase oxygenation perfusion Last Seen Last Seen: This patient was last seen in our office 07/17/23. Pertinent comments regarding their Physical therapy will appear below: Pt seen 7 visits of POC but was only improving in ROM and not pain, she cancelled her remaining visits in favor of returning to doctor. At this point it has been over 3 months and I will discontinue due to nonattendance. At this point I will be discontinuing this patient from physical therapy. I would be happy to see this patient again in the future if found appropriate by the physician. Thank you! David Amos, DPT, OCS, CSCS Balance/Gait/Functional tests Balance/Special Test Scores Oswestry Neck Score: 31
== END 2023-07-17 19:00 | disposition home or self-care (01) ==
LOC: PT 12:30
PROVIDERS: PCP Family Medicine; Referring Provider Anesthesiology; Visit Provider Anesthesiology
DX: M54.12 Radiculopathy, cervical region (principal); M54.2 Cervicalgia; M79.18 Myalgia, other site
CPT/HCPCS: 97035; 97110; 97140; 97161; 97530

== ENCOUNTER → 2024-09-25 | Outpatient (CLI) | payer SELFPAY ==
--- NOTE | 2024-09-25 14:15 | MRI_ITS ---
PROCEDURE: SPINE CERVICAL (ROUTINE) 09/25/2024 REASON FOR EXAM: PAIN TECHNIQUE: SPINE CERVICAL (ROUTINE) Multiplanar and multisequence images were obtained without IV contrast administration. COMPARISON: Prior examination on 06/06/2023 FINDINGS: Vertebrae: Cervical vertebral body heights are preserved. Bone marrow signal is unremarkable. Anterior fusion of the bodies of C6 and C7 again seen with surgical hardware causing paramagnetic artifact. Alignment: Normal. No spondylolisthesis. Spinal Cord: Cervical spinal cord is of normal size and signal intensities. Structures at the foramen magnum are unremarkable. C2-3: Unremarkable C3-4: Minimal narrowing of the intervertebral disc. C4-5: Minimal narrowing of the intervertebral disc. C5-6: Minimal narrowing of the intervertebral disc. C6-7: Anterior fusion of C6 and C7 with disc prosthesis in place. C7-T1: Unremarkable MRI/Spine Cervical (Routine) IMPRESSION: Postsurgical changes status post anterior fusion of C6 and C7 Minimal degenerative disc disease. Otherwise no change since the prior exam. Reading [facility]
== END | disposition home or self-care (01) ==
LOC: MRI 13:47
PROVIDERS: PCP Family Medicine; Referring Provider Orthopaedic Surgery Orthopaedic Surgery of the Spine; Visit Provider Orthopaedic Surgery Orthopaedic Surgery of the Spine
DX: Z47.89 Encounter for other orthopedic aftercare (principal)
CPT/HCPCS: 72141

== ENCOUNTER → 2024-12-02 | Outpatient (CLI) | payer SELFPAY ==
--- NOTE | 2024-12-02 13:55 | RAD_ITS ---
PROCEDURE: CHEST PA AND LATERAL 12/02/2024 REASON FOR EXAM: CHEST WALL PAIN TECHNIQUE: Procedure Code: RADCXR Modality: DX Procedure: CHEST PA AND LATERAL COMPARISON: None FINDINGS: No focal consolidation. No pleural effusion or pneumothorax. Cardiac silhouette is within normal limits. No acute fractures. Cervical ACDF. RAD/Chest PA and Lateral IMPRESSION: No focal consolidations. Reading Location: [id number]
== END | disposition home or self-care (01) ==
PROVIDERS: PCP Family Medicine; Referring Provider Family Medicine; Visit Provider Family Medicine
DX: R07.89 Other chest pain (principal)
CPT/HCPCS: 71046